=== PATIENT | male | born 1960 | race Caucasian/White ===

== ENCOUNTER 2021-03-10 22:21 | Emergency (ER) | payer SELFPAY ==
[~2021-03-10] VITALS: Ht 170.2 cm; Wt 69.0 kg
[2021-03-11] MEDS ORDERED: DIATR MEGLU/DIATRIZOATE SOLN 30ML ONE (01:13)
[2021-03-11 05:40] VITALS: BP 116/72
[2021-03-15] MEDS ORDERED: TAMS-11 GT (03:56)
[2021-03-15] MEDS ORDERED: VALP250C3 GT (03:56)
[2021-03-15] MEDS ORDERED: ZINC50TA69 GT (03:56)
[2021-03-15] MEDS ORDERED: ASCO-339 GT (03:56)
[2021-03-15] MEDS ORDERED: METO25TA6 GT (03:56)
[2021-03-15] MEDS ORDERED: IRBE75TA9 GT (03:56)
[2021-03-15] MEDS ORDERED: OMEP20CA14 GT (03:56)
[2021-03-15] MEDS ORDERED: FAMO20TA8 GT (03:56)
[2021-03-15] MEDS ORDERED: HJ10 SUBCUT (03:56)
[2021-03-15] MEDS ORDERED: MOBI7 GT (03:56)
[2021-03-15] MEDS ORDERED: ATOR40TA70 GT (03:56)
== END 2021-03-11 05:53 ==
LOC: ER 22:21
DX: K94.23 Gastrostomy malfunction (principal); E11.9 Type 2 diabetes mellitus without complications; G40.909 Epilepsy, unspecified, not intractable, without status epilepticus; K21.9 Gastro-esophageal reflux disease without esophagitis; Z87.891 Personal history of nicotine dependence; Y83.3 Surgical operation with formation of external stoma as the cause of abnormal reaction of the patient, or of later complication, without mention of misadventure at the time of the procedure; Y92.128 Other place in nursing home as the place of occurrence of the external cause
CPT/HCPCS: 74018; 93005; 99283; Q9963

== ENCOUNTER 2021-03-11 11:34 | Emergency (ER) | payer OTHER ==
[~2021-03-11] VITALS: Ht 170.2 cm; Wt 63.0 kg
[2021-03-11 13:29] LABS: CHLORIDE 113 mEq/L (98-107)
[2021-03-11 13:35] LABS: INR 1.1; PARTIAL THROMBOPLASTIN TIME 27.6 sec (23.4-31.0); PROTHROMBIN TIME 11.5 sec (9.6-11.0)
[2021-03-11] MEDS ORDERED: LORAZEPAM 2MG/ML CPJ IV ONE (13:45)
[2021-03-11] MEDS ORDERED: LIDOCAINE HCL 1% 20ML VIAL (Pyxis) INJ ONE (14:00)
[2021-03-11] MEDS ORDERED: IOHEXOL-300 50 ML BOTTLE IV ONE (14:00)
[2021-03-11] MEDS ORDERED: LIDOCAINE HCL 2% JELLY 5ML ONE (14:01)
[2021-03-11] MEDS ORDERED: HALOPERIDOL LACTATE 5MG/ML VIAL IM ONE (17:15)
[2021-03-11] MEDS ORDERED: LORAZEPAM 2MG/ML CPJ IM ONE (18:45)
[2021-03-11 19:04] VITALS: BP 142/66
[2021-03-15] MEDS ORDERED: TAMS-11 GT (03:56)
[2021-03-15] MEDS ORDERED: IRBE75TA9 GT (03:56)
[2021-03-15] MEDS ORDERED: ZINC50TA69 GT (03:56)
[2021-03-15] MEDS ORDERED: FAMO20TA8 GT (03:56)
[2021-03-15] MEDS ORDERED: MOBI7 GT (03:56)
[2021-03-15] MEDS ORDERED: METO25TA6 GT (03:56)
[2021-03-15] MEDS ORDERED: ATOR40TA70 GT (03:56)
[2021-03-15] MEDS ORDERED: HJ10 SUBCUT (03:56)
[2021-03-15] MEDS ORDERED: ASCO-339 GT (03:56)
[2021-03-15] MEDS ORDERED: OMEP20CA14 GT (03:56)
[2021-03-15] MEDS ORDERED: VALP250C3 GT (03:56)
== END 2021-03-11 19:07 ==
LOC: ER 11:34
DX: Z43.1 Encounter for attention to gastrostomy (principal); E11.9 Type 2 diabetes mellitus without complications; I10 Essential (primary) hypertension; R45.1 Restlessness and agitation; K21.9 Gastro-esophageal reflux disease without esophagitis; G40.909 Epilepsy, unspecified, not intractable, without status epilepticus; F03.90 Unspecified dementia, unspecified severity, without behavioral disturbance, psychotic disturbance, mood disturbance, and anxiety; Z85.819 Personal history of malignant neoplasm of unspecified site of lip, oral cavity, and pharynx; Z98.890 Other specified postprocedural states; Z20.822 Contact with and (suspected) exposure to COVID-19
CPT/HCPCS: 36415; 36598; 49450; 80053; 85610; 85730; 87426; 96372; 96374; 99285; C1769; C1892; J1630; J2060; J3490; Q9967; Z7610; L8514

== ENCOUNTER 2021-05-01 01:38 | Emergency (ER) | payer OTHER ==
[~2021-05-01] VITALS: Ht 175.3 cm; Wt 51.0 kg
[~2021-05-01 01:38] MED LIST: ASCO-339 GT; ATOR40TA70 GT; FAMO20TA8 GT; HJ10 SUBCUT; IRBE75TA9 GT; METO25TA6 GT; MOBI7 GT; OMEP20CA14 GT; TAMS-11 GT; VALP250C3 GT; ZINC50TA69 GT
[2021-05-01] MEDS ORDERED: MORPHINE SULFATE 4 MG/ML CPJ (NOT FOR IM USE) IV ONE (03:00)
[2021-05-01 03:17] LABS: BASOPHILS % 0.9 % (0.0-2.0); HEMATOCRIT. 32.8 % (42.0-52.0); LYMPHOCYTES % 12.1 % (20.0-50.0); MEAN CORPUSCULAR HEMOGLOBIN 33.1 pg (28.0-32.0); MEAN CORPUSCULAR VOLUME 98.6 fL (80.0-94.0); MEAN PLATELET VOLUME 8.5 fl (7.4-10.4); MONOCYTES % 7.3 % (2.0-8.0); NEUTROPHILS % 77.7 % (40.0-76.0); PLATELET 249 x1000/uL (130-400); RED BLOOD CELL COUNT 3.33 mill/uL (4.7-6.1); RED CELL DISTRIBUTION WIDTH 15.3 % (11.6-14.6)
[2021-05-01 03:30] LABS: CHLORIDE 106 mEq/L (98-107)
[2021-05-01 10:30] VITALS: BP 112/73
== END 2021-05-01 10:29 | disposition short-term general hospital (02) ==
LOC: ER 01:38
DX: K94.23 Gastrostomy malfunction (principal); D64.9 Anemia, unspecified; E11.9 Type 2 diabetes mellitus without complications; Z20.822 Contact with and (suspected) exposure to COVID-19; Z13.9 Encounter for screening, unspecified; Z79.899 Other long term (current) drug therapy; Z98.890 Other specified postprocedural states; Z86.73 Personal history of transient ischemic attack (TIA), and cerebral infarction without residual deficits
CPT/HCPCS: 36415; 80048; 85025; 87426; 96374; 99285; J2270

== ENCOUNTER 2022-04-30 11:04 | Inpatient (IN) | payer MEDICAID, OTHER ==
[~2022-04-30] VITALS: Ht 162.6 cm; Wt 45.4 kg
[2022-04-30] MEDS ORDERED: ACETAMINOPHEN 650MG SUPP PR STA (11:12)
[2022-04-30] MEDS ORDERED: SODIUM CHLORIDE 0.9% 1000ML BAG (SEPSIS BOLUS) IV ONE (11:15)
[2022-04-30] MEDS ORDERED: CEFTRIAXONE 1 G PREMIX 50 ML IV ONE (11:15)
[2022-04-30 11:49] LABS: BG BASE EXCESS -0.2 mmol/L (-2.0-2.0); BG CARBOXYHEMOGLOBIN 0.3 % (0.5-1.5); BG DEOXYHEMOGLOBIN 1.5 % (0.0-5.0); BG FRACTION INSPIRED OXYGEN 36; BG METHEMOGLOBIN 0.3 % (0.0-1.5); BG OXYGEN SATURATION 98.5 % (92.0-98.5); BG OXYHEMOGLOBIN 97.9 % (94.0-97.0); BG PCO2 37.5 mmHg (35.0-45.0); BG PH 7.424 (7.350-7.450); BG PO2 150.6 mmHg (75.0-100.0); BG SAMPLE SITE RIGHT RADIAL; BG TOTAL HEMOGLOBIN 10.6 g/dL (12.0-18.0); BG VENT MODE NASAL CANNULA
[2022-04-30 12:04] LABS: HEMATOCRIT. 31.9 % (42.0-52.0); HEMOGLOBIN. 11.2 g/dL (14.0-18.0); MEAN CORPUSCULAR HEMOGLOBIN 34.2 pg (28.0-32.0); MEAN CORPUSCULAR VOLUME 97.3 fL (80.0-94.0); MEAN PLATELET VOLUME 8.7 fl (7.4-10.4); PLATELET 171 x1000/uL (130-400); RED BLOOD CELL COUNT 3.28 mill/uL (4.7-6.1); RED CELL DISTRIBUTION WIDTH 13.8 % (11.6-14.6)
[2022-04-30 12:10] LABS: CHLORIDE 107 mEq/L (98-107)
[2022-04-30] MEDS ORDERED: LIDOCAINE HCL 1% 50ML VIAL (10MG/ML) ONE (13:39)
[2022-04-30 15:05] LABS: INR 1.1
[2022-04-30 20:00] VITALS: BP 111/63
[2022-04-30 23:19] LABS: PLATELET ESTIMATE NORMAL
[2022-04-30] MEDS ORDERED: IPRATROPIUM/ALBUTEROL 0.5-3(2.5)MG/3ML NEB HHN PRN (23:45)
[2022-05-01 00:47] VITALS: BP 106/65
[2022-05-01] MEDS: PIPERACILLIN/TAZOBACTAM 3.375 G in DEXTROSE 5% WATER 50 ML IV SCH ×3 (03:45→21:31)
[2022-05-01 05:02] VITALS: BP 91/60
[2022-05-01] MEDS: VALPROATE SODIUM 250MG/5ML UDC PO SCH ×3 (06:36→21:31)
[2022-05-01] MEDS ORDERED: TOPUD PO (07:49)
[2022-05-01] MEDS ORDERED: ASCO125T PO (07:49)
[2022-05-01] MEDS ORDERED: MELA2.5T PO (07:49)
[2022-05-01] MEDS ORDERED: DOCU-150 MT (07:49)
[2022-05-01] MEDS ORDERED: ALBU6.7H9 INH (07:49)
[2022-05-01] MEDS ORDERED: CALC1TAB MT (07:49)
[2022-05-01 08:00] VITALS: BP 102/77
[2022-05-01] MEDS: TAMSULOSIN HCL 0.4MG SR CAPSULE PO SCH (08:38)
[2022-05-01] MEDS: ASCORBIC ACID 500 MG TABLET PO SCH (08:38)
[2022-05-01] MEDS: DOCUSATE SODIUM 100MG CAPSULE PO SCH (08:40)
[2022-05-01 12:00] VITALS: BP 105/68
[2022-05-01] MEDS ORDERED: DIGOXIN 500MCG/2ML AMP IV NR (14:00)
[2022-05-01] MEDS ORDERED: NALOXONE HCL 0.4MG/ML VIAL IV PRN (14:00)
[2022-05-01] MEDS: SODIUM CHLORIDE 0.9% 1,000 ML IV SCH (14:01)
[2022-05-01 16:00] VITALS: BP 90/63
[2022-05-01] MEDS ORDERED: VANCOMYCIN 1GM PMX (XELLIA) 200 ML IV NR (16:00)
[2022-05-01] MEDS: HYDROCODONE/ACETAMINOPHEN 5/325MG TABLET PO PRN (17:16)
[2022-05-01 17:59] LABS: CLARITY URINE CLEAR (CLEAR); COLOR URINE YELLOW (YELLOW); KETONES URINE TRACE (NEGATIVE); LEUKOCYTE ESTERASE URINE TRACE (NEGATIVE); NITRITE URINE NEGATIVE (NEGATIVE); OCCULT BLOOD URINE NEGATIVE (NEGATIVE); PH URINE 5.5 (4.5-8.0); PROTEIN URINE TRACE (NEGATIVE); SPECIFIC GRAVITY URINE 1.023 (1.005-1.030)
[2022-05-01] MEDS: ACETAMINOPHEN 325MG TABLET PO PRN (18:32)
[2022-05-01 20:00] VITALS: BP 95/66
[2022-05-01] MEDS ORDERED: DEXTROSE 50% WATER 50ML SYRINGE IV PRN (21:00)
[2022-05-01] MEDS: FAMOTIDINE 20MG TABLET PO SCH (21:31)
[2022-05-01] MEDS: ATORVASTATIN CALCIUM 40MG TABLET PO SCH (21:31)
[2022-05-01] MEDS: INSULIN LISPRO 100 UNITS/ML SUBCUT SCH (23:20)
[2022-05-01] MEDS: BLOOD SUGAR DIAGNOSTIC STRIP TEST SCH (23:21)
[2022-05-02] VITALS (7 sets, daily range): BP systolic 90–107; BP diastolic 57–73
[2022-05-02] MEDS: ACETAMINOPHEN 325MG TABLET PO PRN ×3 (04:43→23:36)
[2022-05-02] MEDS: PIPERACILLIN/TAZOBACTAM 3.375 G in DEXTROSE 5% WATER 50 ML IV SCH ×3 (05:28→21:04)
[2022-05-02] MEDS: VALPROATE SODIUM 250MG/5ML UDC PO SCH ×3 (05:28→21:04)
[2022-05-02] MEDS: VANCOMYCIN 750MG PREMIX 150 ML IV SCH ×2 (05:28→17:50)
[2022-05-02] MEDS: BLOOD SUGAR DIAGNOSTIC STRIP TEST SCH ×4 (05:38→23:29)
[2022-05-02] MEDS: INSULIN LISPRO 100 UNITS/ML SUBCUT SCH ×4 (05:38→23:29)
[2022-05-02 08:09] LABS: HEMOGLOBIN. 10.9 g/dL (14.0-18.0); MEAN CORPUSCULAR HEMOGLOBIN 33.7 pg (28.0-32.0); MEAN CORPUSCULAR VOLUME 105.7 fL (80.0-94.0); PLATELET 118 x1000/uL (130-400); RED BLOOD CELL COUNT 3.22 mill/uL (4.7-6.1); RED CELL DISTRIBUTION WIDTH 14.3 % (11.6-14.6)
[2022-05-02 08:11] LABS: CHLORIDE 115 mEq/L (98-107)
[2022-05-02] MEDS: DOCUSATE SODIUM 100MG CAPSULE PO SCH (09:17)
[2022-05-02] MEDS: ASCORBIC ACID 500 MG TABLET PO SCH (09:17)
[2022-05-02] MEDS: TAMSULOSIN HCL 0.4MG SR CAPSULE PO SCH (09:17)
[2022-05-02] MEDS: SODIUM CHLORIDE 0.9% 1,000 ML IV SCH (09:18)
[2022-05-02] MEDS: ATORVASTATIN CALCIUM 40MG TABLET PO SCH (21:04)
[2022-05-02] MEDS: FAMOTIDINE 20MG TABLET PO SCH (21:04)
[2022-05-03] MEDS: SODIUM CHLORIDE 0.9% 1,000 ML IV SCH (02:19)
[2022-05-03 04:00] VITALS: BP 110/58
[2022-05-03] MEDS: VANCOMYCIN 750MG PREMIX 150 ML IV SCH ×3 (05:34→22:27)
[2022-05-03] MEDS: VALPROATE SODIUM 250MG/5ML UDC PO SCH ×3 (05:37→21:05)
[2022-05-03] MEDS: BLOOD SUGAR DIAGNOSTIC STRIP TEST SCH ×4 (05:59→23:34)
[2022-05-03] MEDS: INSULIN LISPRO 100 UNITS/ML SUBCUT SCH ×4 (05:59→23:34)
[2022-05-03 06:46] LABS: CHLORIDE 111 mEq/L (98-107)
[2022-05-03] MEDS: PIPERACILLIN/TAZOBACTAM 3.375 G in DEXTROSE 5% WATER 50 ML IV SCH ×3 (06:46→22:57)
[2022-05-03 08:00] VITALS: BP 98/63
[2022-05-03 10:33] LABS: HEMOGLOBIN. 9.8 g/dL (14.0-18.0); MEAN CORPUSCULAR HEMOGLOBIN 33.5 pg (28.0-32.0); MEAN CORPUSCULAR VOLUME 103.2 fL (80.0-94.0); MEAN PLATELET VOLUME 8.6 fl (7.4-10.4); PLATELET 94 x1000/uL (130-400); RED BLOOD CELL COUNT 2.91 mill/uL (4.7-6.1)
[2022-05-03 12:00] VITALS: BP 112/63
[2022-05-03] MEDS: TAMSULOSIN HCL 0.4MG SR CAPSULE PO SCH (13:00)
[2022-05-03] MEDS: ASCORBIC ACID 500 MG TABLET PO SCH (13:00)
[2022-05-03] MEDS: DOCUSATE SODIUM 100MG CAPSULE PO SCH (13:00)
[2022-05-03] MEDS ORDERED: IOHEXOL-300 100 ML BOTTLE ONE (13:38)
[2022-05-03 13:50] LABS: PLATELET ESTIMATE DECREASED
[2022-05-03 14:08] LABS: PLATELET ESTIMATE SLIGHTLY DECREASED
[2022-05-03 16:00] VITALS: BP 121/64
[2022-05-03 20:00] VITALS: BP 120/62
[2022-05-03] MEDS: ATORVASTATIN CALCIUM 40MG TABLET PO SCH (20:43)
[2022-05-03] MEDS: FAMOTIDINE 20MG TABLET PO SCH (20:43)
[2022-05-04] VITALS: BP 117/64
[2022-05-04] MEDS: SODIUM CHLORIDE 0.9% 1,000 ML IV SCH ×2 (02:09→21:12)
[2022-05-04 04:00] VITALS: BP 109/62
[2022-05-04] MEDS: VANCOMYCIN 750MG PREMIX 150 ML IV SCH ×3 (05:22→21:12)
[2022-05-04] MEDS: VALPROATE SODIUM 250MG/5ML UDC PO SCH ×3 (05:37→21:12)
[2022-05-04] MEDS: BLOOD SUGAR DIAGNOSTIC STRIP TEST SCH ×3 (05:45→18:00)
[2022-05-04] MEDS: INSULIN LISPRO 100 UNITS/ML SUBCUT SCH ×3 (05:45→18:00)
[2022-05-04] MEDS: PIPERACILLIN/TAZOBACTAM 3.375 G in DEXTROSE 5% WATER 50 ML IV SCH ×2 (06:41→13:00)
[2022-05-04 08:00] VITALS: BP 104/58
[2022-05-04] MEDS: ASCORBIC ACID 500 MG TABLET PO SCH (08:38)
[2022-05-04] MEDS: DOCUSATE SODIUM 100MG CAPSULE PO SCH (08:39)
[2022-05-04] MEDS: TAMSULOSIN HCL 0.4MG SR CAPSULE PO SCH (08:41)
[2022-05-04 10:35] LABS: HEMATOCRIT. 26.5 % (42.0-52.0); HEMOGLOBIN. 8.9 g/dL (14.0-18.0); MEAN CORPUSCULAR HEMOGLOBIN 33.3 pg (28.0-32.0); MEAN CORPUSCULAR VOLUME 98.9 fL (80.0-94.0); MEAN PLATELET VOLUME 8.7 fl (7.4-10.4); PLATELET 108 x1000/uL (130-400); RED BLOOD CELL COUNT 2.68 mill/uL (4.7-6.1); RED CELL DISTRIBUTION WIDTH 13.9 % (11.6-14.6)
[2022-05-04 10:56] LABS: CHLORIDE 116 mEq/L (98-107)
[2022-05-04 12:00] VITALS: BP 132/62
[2022-05-04] MEDS: ACETAMINOPHEN 325MG TABLET PO PRN (13:18)
[2022-05-04 16:00] VITALS: BP 116/60
[2022-05-04] MEDS: MEROPENEM 500 MG in SODIUM CHLORIDE 0.9% 50 ML IV SCH ×2 (19:15→23:34)
[2022-05-04 20:00] VITALS: BP 132/74
[2022-05-04] MEDS: FAMOTIDINE 20MG TABLET PO SCH (21:12)
[2022-05-04] MEDS: ATORVASTATIN CALCIUM 40MG TABLET PO SCH (21:12)
[2022-05-05] VITALS: BP 126/73
[2022-05-05] MEDS: BLOOD SUGAR DIAGNOSTIC STRIP TEST SCH ×5 (00:48→23:43)
[2022-05-05 02:19] LABS: PLATELET ESTIMATE DECREASED
[2022-05-05 04:00] VITALS: BP 134/69
[2022-05-05] MEDS: MEROPENEM 500 MG in SODIUM CHLORIDE 0.9% 50 ML IV SCH ×3 (05:07→21:13)
[2022-05-05] MEDS: VALPROATE SODIUM 250MG/5ML UDC PO SCH ×3 (05:08→21:13)
[2022-05-05] MEDS: ACETAMINOPHEN 325MG TABLET PO PRN ×2 (05:08→21:16)
[2022-05-05] MEDS: VANCOMYCIN 750MG PREMIX 150 ML IV SCH ×3 (05:55→21:14)
[2022-05-05] MEDS: INSULIN LISPRO 100 UNITS/ML SUBCUT SCH ×5 (05:55→23:43)
[2022-05-05 07:10] LABS: VANCOMYCIN TROUGH 22.1 ug/mL (5.0-10.0)
[2022-05-05 07:28] LABS: CHLORIDE 117 mEq/L (98-107)
[2022-05-05] MEDS: ASCORBIC ACID 500 MG TABLET PO SCH (10:39)
[2022-05-05] MEDS: DOCUSATE SODIUM 100MG CAPSULE PO SCH (10:39)
[2022-05-05] MEDS: TAMSULOSIN HCL 0.4MG SR CAPSULE PO SCH (10:39)
[2022-05-05] MEDS: HYDROCODONE/ACETAMINOPHEN 5/325MG TABLET PO PRN (10:44)
[2022-05-05 12:00] VITALS: BP 115/65
[2022-05-05] MEDS: SODIUM CHLORIDE 0.9% 1,000 ML IV SCH (14:37)
[2022-05-05 16:00] VITALS: BP 124/67
[2022-05-05 20:00] VITALS: BP 134/69
[2022-05-05] MEDS: ATORVASTATIN CALCIUM 40MG TABLET PO SCH (21:13)
[2022-05-05] MEDS: FAMOTIDINE 20MG TABLET PO SCH (21:13)
[2022-05-06] VITALS: BP 123/64
[2022-05-06 03:50] LABS: HEMATOCRIT. 26.5 % (42.0-52.0); MEAN CORPUSCULAR HEMOGLOBIN 33.3 pg (28.0-32.0); MEAN CORPUSCULAR VOLUME 98.5 fL (80.0-94.0); MEAN PLATELET VOLUME 8.7 fl (7.4-10.4); PLATELET 145 x1000/uL (130-400); RED BLOOD CELL COUNT 2.69 mill/uL (4.7-6.1); RED CELL DISTRIBUTION WIDTH 13.9 % (11.6-14.6)
[2022-05-06 04:00] VITALS: BP 112/67
[2022-05-06 04:01] LABS: CHLORIDE 116 mEq/L (98-107)
[2022-05-06 04:06] LABS: VANCOMYCIN TROUGH 24.1 ug/mL (5.0-10.0)
[2022-05-06 04:26] LABS: PLATELET ESTIMATE NORMAL
[2022-05-06] MEDS: VALPROATE SODIUM 250MG/5ML UDC PO SCH ×3 (05:00→21:45)
[2022-05-06] MEDS: MEROPENEM 500 MG in SODIUM CHLORIDE 0.9% 50 ML IV SCH ×3 (05:00→21:44)
[2022-05-06] MEDS: VANCOMYCIN 750MG PREMIX 150 ML IV SCH (05:01)
[2022-05-06] MEDS: ACETAMINOPHEN 325MG TABLET PO PRN ×2 (05:02→21:46)
[2022-05-06] MEDS: BLOOD SUGAR DIAGNOSTIC STRIP TEST SCH ×3 (05:04→17:44)
[2022-05-06] MEDS: INSULIN LISPRO 100 UNITS/ML SUBCUT SCH ×3 (05:07→17:44)
[2022-05-06] MEDS: DOCUSATE SODIUM 100MG CAPSULE PO SCH (10:00)
[2022-05-06] MEDS: ASCORBIC ACID 500 MG TABLET PO SCH (10:30)
[2022-05-06] MEDS: TAMSULOSIN HCL 0.4MG SR CAPSULE PO SCH (10:30)
[2022-05-06 12:00] VITALS: BP 102/56
[2022-05-06] MEDS: SODIUM CHLORIDE 0.9% 1,000 ML IV SCH ×2 (13:45→23:17)
[2022-05-06 16:00] VITALS: BP 110/64
[2022-05-06] MEDS: VANCOMYCIN 1GM PMX (XELLIA) 200 ML IV SCH (18:22)
[2022-05-06 20:00] VITALS: BP 93/64
[2022-05-06] MEDS: FAMOTIDINE 20MG TABLET PO SCH (21:45)
[2022-05-06] MEDS: ATORVASTATIN CALCIUM 40MG TABLET PO SCH (21:45)
[2022-05-06] MEDS ORDERED: IOHEXOL-300 100 ML BOTTLE ONE (22:50)
[2022-05-07] VITALS: BP 110/62
[2022-05-07] MEDS: BLOOD SUGAR DIAGNOSTIC STRIP TEST SCH ×5 (00:44→23:45)
[2022-05-07 04:00] VITALS: BP 109/66
[2022-05-07] MEDS: MEROPENEM 500 MG in SODIUM CHLORIDE 0.9% 50 ML IV SCH ×3 (05:07→21:16)
[2022-05-07] MEDS: ACETAMINOPHEN 325MG TABLET PO PRN ×3 (05:08→22:36)
[2022-05-07] MEDS: VANCOMYCIN 1GM PMX (XELLIA) 200 ML IV SCH ×2 (05:08→17:36)
[2022-05-07] MEDS: VALPROATE SODIUM 250MG/5ML UDC PO SCH ×3 (05:08→21:16)
[2022-05-07] MEDS: INSULIN LISPRO 100 UNITS/ML SUBCUT SCH ×5 (05:11→23:44)
[2022-05-07 06:39] LABS: HEMATOCRIT. 23.9 % (42.0-52.0); MEAN CORPUSCULAR HEMOGLOBIN 33.4 pg (28.0-32.0); MEAN CORPUSCULAR VOLUME 100.1 fL (80.0-94.0); PLATELET 165 x1000/uL (130-400); RED BLOOD CELL COUNT 2.38 mill/uL (4.7-6.1); RED CELL DISTRIBUTION WIDTH 13.8 % (11.6-14.6)
[2022-05-07 06:53] LABS: CHLORIDE 118 mEq/L (98-107)
[2022-05-07 07:40] VITALS: BP 111/63
[2022-05-07] MEDS: DOCUSATE SODIUM 100MG CAPSULE PO SCH (08:54)
[2022-05-07] MEDS: ASCORBIC ACID 500 MG TABLET PO SCH (08:54)
[2022-05-07] MEDS: TAMSULOSIN HCL 0.4MG SR CAPSULE PO SCH (08:54)
[2022-05-07 11:35] VITALS: BP 117/65
[2022-05-07 11:51] LABS: PLATELET ESTIMATE NORMAL
[2022-05-07] MEDS: SODIUM CHLORIDE 0.9% 1,000 ML IV SCH (15:19)
[2022-05-07 16:00] VITALS: BP 121/64
[2022-05-07 20:00] VITALS: BP 120/64
[2022-05-07] MEDS: FAMOTIDINE 20MG TABLET PO SCH (21:16)
[2022-05-07] MEDS: ATORVASTATIN CALCIUM 40MG TABLET PO SCH (21:16)
[2022-05-08] VITALS: BP 110/57
[2022-05-08] MEDS: SODIUM CHLORIDE 0.9% 1,000 ML IV SCH ×2 (00:21→09:37)
[2022-05-08 04:00] VITALS: BP 116/58
[2022-05-08 04:56] LABS: CHLORIDE 124 mEq/L (98-107)
[2022-05-08 05:06] LABS: VANCOMYCIN TROUGH 17.9 ug/mL (5.0-10.0)
[2022-05-08] MEDS: BLOOD SUGAR DIAGNOSTIC STRIP TEST SCH ×4 (05:07→23:45)
[2022-05-08] MEDS: INSULIN LISPRO 100 UNITS/ML SUBCUT SCH ×4 (05:07→23:46)
[2022-05-08] MEDS: VALPROATE SODIUM 250MG/5ML UDC PO SCH ×3 (05:08→21:10)
[2022-05-08] MEDS: MEROPENEM 500 MG in SODIUM CHLORIDE 0.9% 50 ML IV SCH ×3 (05:08→21:10)
[2022-05-08] MEDS: VANCOMYCIN 1GM PMX (XELLIA) 200 ML IV SCH ×2 (05:10→18:20)
[2022-05-08 06:17] LABS: HEMATOCRIT. 22.9 % (42.0-52.0); HEMOGLOBIN. 7.6 g/dL (14.0-18.0); MEAN CORPUSCULAR HEMOGLOBIN 33.6 pg (28.0-32.0); MEAN CORPUSCULAR VOLUME 101.3 fL (80.0-94.0); MEAN PLATELET VOLUME 9.1 fl (7.4-10.4); PLATELET 171 x1000/uL (130-400); RED BLOOD CELL COUNT 2.26 mill/uL (4.7-6.1); RED CELL DISTRIBUTION WIDTH 14.3 % (11.6-14.6)
[2022-05-08 08:00] VITALS: BP 94/67
[2022-05-08] MEDS: ASCORBIC ACID 500 MG TABLET PO SCH (09:36)
[2022-05-08] MEDS: DOCUSATE SODIUM 100MG CAPSULE PO SCH (09:37)
[2022-05-08] MEDS: TAMSULOSIN HCL 0.4MG SR CAPSULE PO SCH (09:37)
[2022-05-08 11:41] VITALS: BP 117/66
[2022-05-08 15:34] LABS: NUCLEATED RED BLOOD CELLS 1 /100 WBC; PLATELET ESTIMATE NORMAL
[2022-05-08 15:59] VITALS: BP 120/65
[2022-05-08 20:30] VITALS: BP 134/79
[2022-05-08] MEDS: ATORVASTATIN CALCIUM 40MG TABLET PO SCH (21:10)
[2022-05-08] MEDS: FAMOTIDINE 20MG TABLET PO SCH (21:10)
[2022-05-09] VITALS (7 sets, daily range): BP systolic 97–110; BP diastolic 56–71
[2022-05-09] MEDS: INSULIN LISPRO 100 UNITS/ML SUBCUT SCH ×3 (06:00→17:08)
[2022-05-09] MEDS: VANCOMYCIN 1GM PMX (XELLIA) 200 ML IV SCH ×2 (06:05→17:38)
[2022-05-09] MEDS: MEROPENEM 500 MG in SODIUM CHLORIDE 0.9% 50 ML IV SCH ×3 (06:05→21:20)
[2022-05-09] MEDS: VALPROATE SODIUM 250MG/5ML UDC PO SCH ×3 (06:05→21:20)
[2022-05-09] MEDS: BLOOD SUGAR DIAGNOSTIC STRIP TEST SCH ×3 (06:16→17:08)
[2022-05-09] MEDS: DOCUSATE SODIUM 100MG CAPSULE PO SCH (08:32)
[2022-05-09] MEDS: TAMSULOSIN HCL 0.4MG SR CAPSULE PO SCH (08:33)
[2022-05-09] MEDS: ASCORBIC ACID 500 MG TABLET PO SCH (08:33)
[2022-05-09] MEDS: ACETAMINOPHEN 325MG TABLET PO PRN (08:36)
[2022-05-09 11:03] LABS: CREATINE KINASE 1014 IU/L (39-308); TOTAL IRON BINDING CAPACITY 110 ug/dL (250-450)
[2022-05-09 13:11] LABS: CHLORIDE 122 mEq/L (98-107)
[2022-05-09 14:04] LABS: HEMATOCRIT. 23.2 % (42.0-52.0); HEMOGLOBIN. 7.6 g/dL (14.0-18.0); MEAN CORPUSCULAR VOLUME 101.3 fL (80.0-94.0); MEAN PLATELET VOLUME 8.9 fl (7.4-10.4); PLATELET 186 x1000/uL (130-400); RED BLOOD CELL COUNT 2.29 mill/uL (4.7-6.1); RED CELL DISTRIBUTION WIDTH 14.3 % (11.6-14.6)
[2022-05-09] MEDS: METHYLPREDNISOLONE SOD SUCC 40 MG/ML VIAL IV SCH ×2 (14:56→21:20)
[2022-05-09] MEDS: FAMOTIDINE 20MG TABLET PO SCH (20:47)
[2022-05-09] MEDS: ATORVASTATIN CALCIUM 40MG TABLET PO SCH (20:47)
[2022-05-09 22:13] LABS: PLATELET ESTIMATE NORMAL
[2022-05-10] MEDS: BLOOD SUGAR DIAGNOSTIC STRIP TEST SCH ×4 (00:07→17:37)
[2022-05-10] MEDS: INSULIN LISPRO 100 UNITS/ML SUBCUT SCH ×4 (00:34→17:38)
[2022-05-10 00:42] VITALS: BP 101/66
[2022-05-10 04:00] VITALS: BP 99/64
[2022-05-10] MEDS: MEROPENEM 500 MG in SODIUM CHLORIDE 0.9% 50 ML IV SCH ×3 (05:36→21:43)
[2022-05-10] MEDS: METHYLPREDNISOLONE SOD SUCC 40 MG/ML VIAL IV SCH ×3 (05:36→21:41)
[2022-05-10] MEDS: VANCOMYCIN 1GM PMX (XELLIA) 200 ML IV SCH ×2 (05:36→17:39)
[2022-05-10] MEDS: VALPROATE SODIUM 250MG/5ML UDC PO SCH ×3 (05:36→21:41)
[2022-05-10 08:00] VITALS: BP 101/72
[2022-05-10 08:04] LABS: HEMATOCRIT. 23.8 % (42.0-52.0); HEMOGLOBIN. 7.6 g/dL (14.0-18.0); MEAN CORPUSCULAR HEMOGLOBIN 32.8 pg (28.0-32.0); MEAN CORPUSCULAR VOLUME 102.6 fL (80.0-94.0); PLATELET 156 x1000/uL (130-400); RED BLOOD CELL COUNT 2.32 mill/uL (4.7-6.1); RED CELL DISTRIBUTION WIDTH 14.7 % (11.6-14.6)
[2022-05-10 08:08] LABS: CHLORIDE 120 mEq/L (98-107)
[2022-05-10] MEDS: DOCUSATE SODIUM 100MG CAPSULE PO SCH (08:16)
[2022-05-10] MEDS: ASCORBIC ACID 500 MG TABLET PO SCH (08:17)
[2022-05-10] MEDS: TAMSULOSIN HCL 0.4MG SR CAPSULE PO SCH (08:17)
[2022-05-10 12:00] VITALS: BP 100/70
[2022-05-10 16:00] VITALS: BP 115/62
[2022-05-10 21:10] VITALS: BP 109/72
[2022-05-10] MEDS: ATORVASTATIN CALCIUM 40MG TABLET PO SCH (21:40)
[2022-05-10] MEDS: FAMOTIDINE 20MG TABLET PO SCH (21:40)
[2022-05-11] VITALS: BP 106/65
[2022-05-11 04:00] VITALS: BP 117/84
[2022-05-11] MEDS: VANCOMYCIN 1GM PMX (XELLIA) 200 ML IV SCH ×2 (05:47→17:24)
[2022-05-11] MEDS: BLOOD SUGAR DIAGNOSTIC STRIP TEST SCH ×4 (06:00→18:00)
[2022-05-11] MEDS: INSULIN LISPRO 100 UNITS/ML SUBCUT SCH ×4 (06:00→17:24)
[2022-05-11] MEDS: VALPROATE SODIUM 250MG/5ML UDC PO SCH ×3 (06:44→21:09)
[2022-05-11] MEDS: METHYLPREDNISOLONE SOD SUCC 40 MG/ML VIAL IV SCH ×3 (06:44→21:47)
[2022-05-11] MEDS: MEROPENEM 500 MG in SODIUM CHLORIDE 0.9% 50 ML IV SCH ×3 (07:29→21:09)
[2022-05-11 08:07] LABS: ANTI-JO 1 ABS <0.2 AI (0.0-0.9); RNP ANTIBODY < 0.2 AI (0.0-0.9)
[2022-05-11] MEDS: ASCORBIC ACID 500 MG TABLET PO SCH (08:08)
[2022-05-11] MEDS: DOCUSATE SODIUM SUGAR FREE 100MG/10ML UDC NG SCH (08:08)
[2022-05-11] MEDS: TAMSULOSIN HCL 0.4MG SR CAPSULE PO SCH (08:09)
[2022-05-11 09:10] LABS: ANTI-DNA DOUBLE STRANDED QUANT 2 IU/mL (0-9)
[2022-05-11 12:00] VITALS: BP 106/70
[2022-05-11 12:34] LABS: HEMATOCRIT 23.8 % (42.0-52.0); HEMOGLOBIN 7.4 g/dL (14.0-18.0)
[2022-05-11] MEDS: ACETAMINOPHEN 325MG TABLET PO PRN ×2 (13:19→17:01)
[2022-05-11 16:00] VITALS: BP 109/71
[2022-05-11 20:00] VITALS: BP 101/66
[2022-05-11] MEDS: FAMOTIDINE 20MG TABLET PO SCH (20:41)
[2022-05-11] MEDS: ATORVASTATIN CALCIUM 40MG TABLET PO SCH (20:41)
[2022-05-12] VITALS (10 sets, daily range): BP systolic 104–121; BP diastolic 67–78
[2022-05-12] MEDS: BLOOD SUGAR DIAGNOSTIC STRIP TEST SCH ×5 (00:36→23:21)
[2022-05-12] MEDS: INSULIN LISPRO 100 UNITS/ML SUBCUT SCH ×5 (00:46→23:22)
[2022-05-12] MEDS: MEROPENEM 500 MG in SODIUM CHLORIDE 0.9% 50 ML IV SCH ×3 (05:23→21:28)
[2022-05-12] MEDS: VALPROATE SODIUM 250MG/5ML UDC PO SCH ×3 (05:23→21:28)
[2022-05-12] MEDS: METHYLPREDNISOLONE SOD SUCC 40 MG/ML VIAL IV SCH ×3 (05:40→21:29)
[2022-05-12 05:54] LABS: CHLORIDE 119 mEq/L (98-107)
[2022-05-12] MEDS: VANCOMYCIN 1GM PMX (XELLIA) 200 ML IV SCH ×2 (06:13→17:50)
[2022-05-12 06:23] LABS: HEMATOCRIT. 21.5 % (42.0-52.0); MEAN CORPUSCULAR HEMOGLOBIN 31.9 pg (28.0-32.0); MEAN CORPUSCULAR VOLUME 100.8 fL (80.0-94.0); MEAN PLATELET VOLUME 9.9 fl (7.4-10.4); PLATELET 178 x1000/uL (130-400); RED BLOOD CELL COUNT 2.13 mill/uL (4.7-6.1); RED CELL DISTRIBUTION WIDTH 14.2 % (11.6-14.6)
[2022-05-12 06:39] LABS: HEMOGLOBIN. 6.8 g/dL (14.0-18.0)
[2022-05-12] MEDS: ASCORBIC ACID 500 MG TABLET PO SCH (08:17)
[2022-05-12] MEDS: TAMSULOSIN HCL 0.4MG SR CAPSULE PO SCH (08:17)
[2022-05-12] MEDS: DOCUSATE SODIUM SUGAR FREE 100MG/10ML UDC NG SCH (08:17)
[2022-05-12 09:06] LABS: ANA IFA Negative (.)
[2022-05-12 13:10] LABS: ATYPICAL P-ANCA <1:20 titer (Neg:<1:20); CYTOPLASMIC C-ANCA <1:20 titer (Neg:<1:20); PERINUCLEAR P-ANCA <1:20 titer (Neg:<1:20)
[2022-05-12 14:19] LABS: PLATELET ESTIMATE NORMAL
[2022-05-12 19:10] LABS: ANTI-MYELOPEROXIDASE AB < 0.2 units (0.0-0.9); ANTI-PROTEINASE 3 ABS < 0.2 units (0.0-0.9)
[2022-05-12 20:46] LABS: HEMOGLOBIN 9.7 g/dL (14.0-18.0)
[2022-05-12] MEDS: ATORVASTATIN CALCIUM 40MG TABLET PO SCH (21:28)
[2022-05-12] MEDS: FAMOTIDINE 20MG TABLET PO SCH (21:28)
[2022-05-13 04:00] VITALS: BP 109/74
[2022-05-13] MEDS: MEROPENEM 500 MG in SODIUM CHLORIDE 0.9% 50 ML IV SCH ×3 (05:14→21:59)
[2022-05-13] MEDS: BLOOD SUGAR DIAGNOSTIC STRIP TEST SCH ×3 (05:43→17:35)
[2022-05-13] MEDS: VANCOMYCIN 1GM PMX (XELLIA) 200 ML IV SCH ×2 (05:43→17:31)
[2022-05-13] MEDS: VALPROATE SODIUM 250MG/5ML UDC PO SCH ×3 (05:43→22:00)
[2022-05-13] MEDS: METHYLPREDNISOLONE SOD SUCC 40 MG/ML VIAL IV SCH ×3 (05:43→22:00)
[2022-05-13] MEDS: INSULIN LISPRO 100 UNITS/ML SUBCUT SCH ×3 (05:47→17:35)
[2022-05-13 06:53] LABS: HEMATOCRIT. 25.5 % (42.0-52.0); HEMOGLOBIN. 8.5 g/dL (14.0-18.0); MEAN CORPUSCULAR HEMOGLOBIN 32.8 pg (28.0-32.0); MEAN CORPUSCULAR VOLUME 98.3 fL (80.0-94.0); MEAN PLATELET VOLUME 9.6 fl (7.4-10.4); PLATELET 167 x1000/uL (130-400); RED BLOOD CELL COUNT 2.59 mill/uL (4.7-6.1); RED CELL DISTRIBUTION WIDTH 14.6 % (11.6-14.6)
[2022-05-13 07:06] LABS: CHLORIDE 117 mEq/L (98-107)
[2022-05-13 08:00] VITALS: BP 117/74
[2022-05-13] MEDS: DOCUSATE SODIUM SUGAR FREE 100MG/10ML UDC NG SCH (08:22)
[2022-05-13] MEDS: TAMSULOSIN HCL 0.4MG SR CAPSULE PO SCH (08:22)
[2022-05-13] MEDS: ASCORBIC ACID 500 MG TABLET PO SCH (08:22)
[2022-05-13 09:09] LABS: NUCLEATED RED BLOOD CELLS 1 /100 WBC; PLATELET ESTIMATE NORMAL
[2022-05-13 12:00] VITALS: BP 113/76
[2022-05-13 14:30] LABS: FOLIC ACID (FOLATE) SERUM 19.9 ng/mL (>5.38)
[2022-05-13 15:08] LABS: ACTIN (SMOOTH MUSCLE) ANTIBODY 14 Units (0-19)
[2022-05-13 16:00] VITALS: BP 116/74
[2022-05-13 17:06] LABS: ANTI-CARDIOLIPIN AB IGG < 9 GPL U/mL (0-14); ANTI-CARDIOLIPIN AB IGM 13 MPL U/mL (0-12)
[2022-05-13] MEDS: PANTOPRAZOLE SODIUM 40 MG/VIAL IV SCH (17:34)
[2022-05-13 20:00] VITALS: BP 132/85
[2022-05-13] MEDS: ATORVASTATIN CALCIUM 40MG TABLET PO SCH (21:59)
[2022-05-13] MEDS: FAMOTIDINE 20MG TABLET PO SCH (21:59)
[2022-05-14] VITALS: BP 121/83
[2022-05-14] MEDS: BLOOD SUGAR DIAGNOSTIC STRIP TEST SCH ×4 (00:26→17:39)
[2022-05-14] MEDS: INSULIN LISPRO 100 UNITS/ML SUBCUT SCH ×4 (00:28→17:47)
[2022-05-14 04:00] VITALS: BP 125/76
[2022-05-14] MEDS: ACETAMINOPHEN 325MG TABLET PO PRN ×2 (04:58→17:25)
[2022-05-14] MEDS: MEROPENEM 500 MG in SODIUM CHLORIDE 0.9% 50 ML IV SCH ×3 (05:48→21:56)
[2022-05-14] MEDS: VANCOMYCIN 1GM PMX (XELLIA) 200 ML IV SCH (06:01)
[2022-05-14] MEDS: METHYLPREDNISOLONE SOD SUCC 40 MG/ML VIAL IV SCH ×3 (06:22→21:56)
[2022-05-14] MEDS: VALPROATE SODIUM 250MG/5ML UDC PO SCH ×3 (06:22→21:56)
[2022-05-14 07:05] LABS: HEMATOCRIT. 28.3 % (42.0-52.0); HEMOGLOBIN. 9.2 g/dL (14.0-18.0); MEAN CORPUSCULAR HEMOGLOBIN 32.5 pg (28.0-32.0); MEAN CORPUSCULAR VOLUME 100.6 fL (80.0-94.0); MEAN PLATELET VOLUME 9.4 fl (7.4-10.4); PLATELET 180 x1000/uL (130-400); RED BLOOD CELL COUNT 2.81 mill/uL (4.7-6.1); RED CELL DISTRIBUTION WIDTH 14.6 % (11.6-14.6)
[2022-05-14 07:54] LABS: CHLORIDE 119 mEq/L (98-107)
[2022-05-14 08:00] LABS: VANCOMYCIN TROUGH 22.6 ug/mL (5.0-10.0)
[2022-05-14] MEDS: ASCORBIC ACID 500 MG TABLET PO SCH (09:04)
[2022-05-14] MEDS: DOCUSATE SODIUM SUGAR FREE 100MG/10ML UDC NG SCH (09:04)
[2022-05-14] MEDS: PANTOPRAZOLE SODIUM 40 MG/VIAL IV SCH ×2 (09:04→17:31)
[2022-05-14] MEDS: TAMSULOSIN HCL 0.4MG SR CAPSULE PO SCH (09:08)
[2022-05-14 10:15] LABS: NUCLEATED RED BLOOD CELLS 1 /100 WBC; PLATELET ESTIMATE NORMAL
[2022-05-14 12:00] VITALS: BP 149/85
[2022-05-14 16:00] VITALS: BP 135/77
[2022-05-14] MEDS: VANCOMYCIN 750MG PMX (XELLIA) 150 ML IV SCH (17:26)
[2022-05-14 20:00] VITALS: BP 118/79
[2022-05-14] MEDS: ATORVASTATIN CALCIUM 40MG TABLET PO SCH (21:55)
[2022-05-14] MEDS: FAMOTIDINE 20MG TABLET PO SCH (21:56)
[2022-05-15] VITALS: BP 112/75
[2022-05-15 04:00] VITALS: BP 114/75
[2022-05-15] MEDS: INSULIN LISPRO 100 UNITS/ML SUBCUT SCH ×4 (06:00→17:43)
[2022-05-15] MEDS: VANCOMYCIN 750MG PMX (XELLIA) 150 ML IV SCH ×2 (06:32→17:40)
[2022-05-15] MEDS: MEROPENEM 500 MG in SODIUM CHLORIDE 0.9% 50 ML IV SCH ×3 (06:32→22:09)
[2022-05-15] MEDS: BLOOD SUGAR DIAGNOSTIC STRIP TEST SCH ×4 (06:33→17:40)
[2022-05-15] MEDS: VALPROATE SODIUM 250MG/5ML UDC PO SCH ×3 (06:33→21:53)
[2022-05-15] MEDS: METHYLPREDNISOLONE SOD SUCC 40 MG/ML VIAL IV SCH ×3 (06:33→21:53)
[2022-05-15 08:00] VITALS: BP 116/73
[2022-05-15 08:20] LABS: BASOPHILS % 0.1 % (0.0-2.0); EOSINOPHILS % 0.4 % (0.0-5.0); HEMATOCRIT. 30.5 % (42.0-52.0); HEMOGLOBIN. 10.1 g/dL (14.0-18.0); LYMPHOCYTES % 8.4 % (20.0-50.0); MEAN CORPUSCULAR HEMOGLOBIN 32.8 pg (28.0-32.0); MEAN CORPUSCULAR VOLUME 98.7 fL (80.0-94.0); MEAN PLATELET VOLUME 9.1 fl (7.4-10.4); MONOCYTES % 5.6 % (2.0-8.0); NEUTROPHILS % 85.5 % (40.0-76.0); PLATELET 224 x1000/uL (130-400); RED BLOOD CELL COUNT 3.09 mill/uL (4.7-6.1); RED CELL DISTRIBUTION WIDTH 14.4 % (11.6-14.6)
[2022-05-15 08:22] LABS: CHLORIDE 115 mEq/L (98-107)
[2022-05-15] MEDS: DOCUSATE SODIUM SUGAR FREE 100MG/10ML UDC NG SCH (09:05)
[2022-05-15] MEDS: TAMSULOSIN HCL 0.4MG SR CAPSULE PO SCH (09:06)
[2022-05-15] MEDS: PANTOPRAZOLE SODIUM 40 MG/VIAL IV SCH ×2 (09:06→16:59)
[2022-05-15] MEDS: ASCORBIC ACID 500 MG TABLET PO SCH (09:06)
[2022-05-15 12:00] VITALS: BP 112/82
[2022-05-15 16:00] VITALS: BP 110/68
[2022-05-15 20:00] VITALS: BP 108/74
[2022-05-15] MEDS: FAMOTIDINE 20MG TABLET PO SCH (21:53)
[2022-05-15] MEDS: ATORVASTATIN CALCIUM 40MG TABLET PO SCH (21:53)
[2022-05-16] VITALS: BP 103/70
[2022-05-16] MEDS: BLOOD SUGAR DIAGNOSTIC STRIP TEST SCH ×5 (00:07→23:55)
[2022-05-16] MEDS: INSULIN LISPRO 100 UNITS/ML SUBCUT SCH ×5 (00:07→23:55)
[2022-05-16 04:00] VITALS: BP 116/74
[2022-05-16] MEDS: MEROPENEM 500 MG in SODIUM CHLORIDE 0.9% 50 ML IV SCH ×3 (05:03→20:23)
[2022-05-16] MEDS: VALPROATE SODIUM 250MG/5ML UDC PO SCH ×3 (05:38→20:23)
[2022-05-16] MEDS: VANCOMYCIN 750MG PMX (XELLIA) 150 ML IV SCH ×2 (05:38→17:14)
[2022-05-16] MEDS: METHYLPREDNISOLONE SOD SUCC 40 MG/ML VIAL IV SCH ×3 (05:39→20:24)
[2022-05-16 08:00] VITALS: BP 115/71
[2022-05-16 08:07] LABS: HEMATOCRIT. 27.1 % (42.0-52.0); HEMOGLOBIN. 8.9 g/dL (14.0-18.0); MEAN CORPUSCULAR VOLUME 100.3 fL (80.0-94.0); MEAN PLATELET VOLUME 9.1 fl (7.4-10.4); PLATELET 192 x1000/uL (130-400); RED CELL DISTRIBUTION WIDTH 15.1 % (11.6-14.6)
[2022-05-16 08:18] LABS: CHLORIDE 113 mEq/L (98-107)
[2022-05-16] MEDS: DOCUSATE SODIUM SUGAR FREE 100MG/10ML UDC NG SCH (09:11)
[2022-05-16] MEDS: TAMSULOSIN HCL 0.4MG SR CAPSULE PO SCH (09:11)
[2022-05-16] MEDS: PANTOPRAZOLE SODIUM 40 MG/VIAL IV SCH ×2 (09:11→17:15)
[2022-05-16] MEDS: ASCORBIC ACID 500 MG TABLET PO SCH (09:11)
[2022-05-16 09:47] LABS: PLATELET ESTIMATE NORMAL
[2022-05-16 12:00] VITALS: BP 123/81
[2022-05-16 16:00] VITALS: BP 117/81
[2022-05-16 20:00] VITALS: BP_SYST 119; BP_SYST 175; BP_DIAS 113; BP_DIAS 83
[2022-05-16] MEDS: ACETAMINOPHEN 325MG TABLET PO PRN (20:23)
[2022-05-16] MEDS: ATORVASTATIN CALCIUM 40MG TABLET PO SCH (20:23)
[2022-05-16] MEDS: FAMOTIDINE 20MG TABLET PO SCH (20:23)
[2022-05-17] VITALS: BP 121/75
[2022-05-17 04:00] VITALS: BP 110/70
[2022-05-17] MEDS: BLOOD SUGAR DIAGNOSTIC STRIP TEST SCH ×3 (05:45→17:27)
[2022-05-17] MEDS: INSULIN LISPRO 100 UNITS/ML SUBCUT SCH ×3 (05:45→17:28)
[2022-05-17] MEDS: VALPROATE SODIUM 250MG/5ML UDC PO SCH ×3 (05:46→22:05)
[2022-05-17] MEDS: METHYLPREDNISOLONE SOD SUCC 40 MG/ML VIAL IV SCH ×3 (05:46→22:08)
[2022-05-17 07:10] LABS: CHLORIDE 110 mEq/L (98-107)
[2022-05-17 07:24] LABS: HEMOGLOBIN. 9.3 g/dL (14.0-18.0); MEAN CORPUSCULAR HEMOGLOBIN 33.3 pg (28.0-32.0); MEAN CORPUSCULAR VOLUME 100.7 fL (80.0-94.0); MEAN PLATELET VOLUME 9.4 fl (7.4-10.4); PLATELET 190 x1000/uL (130-400); RED BLOOD CELL COUNT 2.78 mill/uL (4.7-6.1); RED CELL DISTRIBUTION WIDTH 14.6 % (11.6-14.6)
[2022-05-17 08:00] VITALS: BP 118/77
[2022-05-17] MEDS: PANTOPRAZOLE SODIUM 40 MG/VIAL IV SCH ×2 (08:45→17:27)
[2022-05-17] MEDS: DOCUSATE SODIUM SUGAR FREE 100MG/10ML UDC NG SCH (08:45)
[2022-05-17] MEDS: ASCORBIC ACID 500 MG TABLET PO SCH (08:46)
[2022-05-17] MEDS: TAMSULOSIN HCL 0.4MG SR CAPSULE PO SCH (08:46)
[2022-05-17 09:21] LABS: PLATELET ESTIMATE NORMAL
[2022-05-17 12:00] VITALS: BP 124/80
[2022-05-17 16:30] VITALS: BP 125/83
[2022-05-17 20:41] VITALS: BP 115/59
[2022-05-17] MEDS: FAMOTIDINE 20MG TABLET PO SCH (22:05)
[2022-05-17] MEDS: ATORVASTATIN CALCIUM 40MG TABLET PO SCH (22:05)
[2022-05-18 00:26] VITALS: BP 117/75
[2022-05-18 04:00] VITALS: BP 114/73
[2022-05-18] MEDS: ACETAMINOPHEN 325MG TABLET PO PRN ×2 (04:23→20:29)
[2022-05-18] MEDS: INSULIN LISPRO 100 UNITS/ML SUBCUT SCH ×4 (06:00→17:33)
[2022-05-18] MEDS: METHYLPREDNISOLONE SOD SUCC 40 MG/ML VIAL IV SCH ×3 (06:30→21:23)
[2022-05-18] MEDS: VALPROATE SODIUM 250MG/5ML UDC PO SCH ×3 (06:30→21:25)
[2022-05-18] MEDS: BLOOD SUGAR DIAGNOSTIC STRIP TEST SCH ×4 (06:31→17:31)
[2022-05-18 07:43] LABS: EOSINOPHILS % 0.1 % (0.0-5.0); HEMATOCRIT. 29.4 % (42.0-52.0); HEMOGLOBIN. 9.8 g/dL (14.0-18.0); LYMPHOCYTES % 7.4 % (20.0-50.0); MEAN CORPUSCULAR HEMOGLOBIN 33.3 pg (28.0-32.0); MEAN CORPUSCULAR VOLUME 99.9 fL (80.0-94.0); MEAN PLATELET VOLUME 9.1 fl (7.4-10.4); MONOCYTES % 4.8 % (2.0-8.0); NEUTROPHILS % 87.7 % (40.0-76.0); PLATELET 220 x1000/uL (130-400); RED BLOOD CELL COUNT 2.95 mill/uL (4.7-6.1); RED CELL DISTRIBUTION WIDTH 14.9 % (11.6-14.6)
[2022-05-18 07:57] LABS: CHLORIDE 106 mEq/L (98-107)
[2022-05-18 08:00] VITALS: BP 113/74
[2022-05-18] MEDS: DOCUSATE SODIUM SUGAR FREE 100MG/10ML UDC NG SCH (09:09)
[2022-05-18] MEDS: PANTOPRAZOLE SODIUM 40 MG/VIAL IV SCH (09:09)
[2022-05-18] MEDS: TAMSULOSIN HCL 0.4MG SR CAPSULE PO SCH (09:10)
[2022-05-18] MEDS: ASCORBIC ACID 500 MG TABLET PO SCH (09:10)
[2022-05-18 12:00] VITALS: BP 120/60
[2022-05-18 16:00] VITALS: BP 116/74
[2022-05-18] MEDS: ATORVASTATIN CALCIUM 40MG TABLET PO SCH (20:29)
[2022-05-18] MEDS: FAMOTIDINE 20MG TABLET PO SCH (20:29)
[2022-05-18 20:51] VITALS: BP 114/76
[2022-05-19] MEDS: BLOOD SUGAR DIAGNOSTIC STRIP TEST SCH ×4 (00:14→18:23)
[2022-05-19 00:42] VITALS: BP 109/67
[2022-05-19] MEDS: INSULIN LISPRO 100 UNITS/ML SUBCUT SCH ×4 (06:00→18:00)
[2022-05-19] MEDS: VALPROATE SODIUM 250MG/5ML UDC PO SCH ×3 (06:35→21:16)
[2022-05-19] MEDS: METHYLPREDNISOLONE SOD SUCC 40 MG/ML VIAL IV SCH ×3 (06:36→21:17)
[2022-05-19 08:00] VITALS: BP 137/74
[2022-05-19] MEDS: TAMSULOSIN HCL 0.4MG SR CAPSULE PO SCH (09:20)
[2022-05-19] MEDS: DOCUSATE SODIUM SUGAR FREE 100MG/10ML UDC NG SCH (09:21)
[2022-05-19] MEDS: ASCORBIC ACID 500 MG TABLET PO SCH (09:21)
[2022-05-19] MEDS: FAMOTIDINE 20MG TABLET PO SCH ×2 (09:21→21:16)
[2022-05-19 12:00] VITALS: BP 116/59
[2022-05-19 16:00] VITALS: BP 109/74
[2022-05-19 20:00] VITALS: BP 125/77
[2022-05-19] MEDS: ATORVASTATIN CALCIUM 40MG TABLET PO SCH (21:16)
[2022-05-20] VITALS: BP 121/77
[2022-05-20] MEDS: BLOOD SUGAR DIAGNOSTIC STRIP TEST SCH ×4 (00:18→18:29)
[2022-05-20] MEDS: ACETAMINOPHEN 325MG TABLET PO PRN ×2 (00:49→18:28)
[2022-05-20 04:00] VITALS: BP 103/73
[2022-05-20] MEDS: INSULIN LISPRO 100 UNITS/ML SUBCUT SCH ×4 (06:00→18:00)
[2022-05-20] MEDS: VALPROATE SODIUM 250MG/5ML UDC PO SCH ×3 (06:13→21:03)
[2022-05-20] MEDS: METHYLPREDNISOLONE SOD SUCC 40 MG/ML VIAL IV SCH ×3 (06:14→21:03)
[2022-05-20 08:00] VITALS: BP 122/78
[2022-05-20] MEDS: DOCUSATE SODIUM SUGAR FREE 100MG/10ML UDC NG SCH (08:58)
[2022-05-20] MEDS: TAMSULOSIN HCL 0.4MG SR CAPSULE PO SCH (08:58)
[2022-05-20] MEDS: FAMOTIDINE 20MG TABLET PO SCH ×2 (08:58→20:45)
[2022-05-20] MEDS: ASCORBIC ACID 500 MG TABLET PO SCH (08:59)
[2022-05-20] MEDS ORDERED: BISACODYL 10MG SUPP PR SCH (11:00)
[2022-05-20] MEDS ORDERED: LACTULOSE 20G/30ML UDC PO SCH (11:00)
[2022-05-20 12:00] VITALS: BP 117/73
[2022-05-20 16:00] VITALS: BP 121/71
[2022-05-20 20:00] VITALS: BP 104/68
[2022-05-20] MEDS: ATORVASTATIN CALCIUM 40MG TABLET PO SCH (20:45)
[2022-05-20] MEDS: SENNOSIDES 8.6MG TABLET PO SCH (20:45)
[2022-05-21] VITALS: BP 111/76
[2022-05-21] MEDS: BLOOD SUGAR DIAGNOSTIC STRIP TEST SCH ×4 (00:31→18:54)
[2022-05-21 04:00] VITALS: BP 107/70
[2022-05-21] MEDS: INSULIN LISPRO 100 UNITS/ML SUBCUT SCH ×4 (06:00→17:18)
[2022-05-21] MEDS: METHYLPREDNISOLONE SOD SUCC 40 MG/ML VIAL IV SCH (06:30)
[2022-05-21] MEDS: ACETAMINOPHEN 325MG TABLET PO PRN ×2 (06:35→20:24)
[2022-05-21] MEDS: VALPROATE SODIUM 250MG/5ML UDC PO SCH ×3 (06:38→22:02)
[2022-05-21 07:18] LABS: HEMOGLOBIN. 9.7 g/dL (14.0-18.0); MEAN CORPUSCULAR HEMOGLOBIN 33.5 pg (28.0-32.0); MEAN CORPUSCULAR VOLUME 100.3 fL (80.0-94.0); MEAN PLATELET VOLUME 8.9 fl (7.4-10.4); PLATELET 218 x1000/uL (130-400); RED BLOOD CELL COUNT 2.89 mill/uL (4.7-6.1); RED CELL DISTRIBUTION WIDTH 16.3 % (11.6-14.6)
[2022-05-21 07:44] LABS: CHLORIDE 105 mEq/L (98-107)
[2022-05-21 08:00] VITALS: BP 116/67
[2022-05-21] MEDS ORDERED: DIATR MEGLU/DIATRIZOATE SOLN 30ML ONE (09:47)
[2022-05-21] MEDS: DOCUSATE SODIUM SUGAR FREE 100MG/10ML UDC NG SCH (10:13)
[2022-05-21] MEDS: ASCORBIC ACID 500 MG TABLET PO SCH (10:13)
[2022-05-21] MEDS: TAMSULOSIN HCL 0.4MG SR CAPSULE PO SCH (10:14)
[2022-05-21] MEDS: FAMOTIDINE 20MG TABLET PO SCH ×2 (10:14→20:24)
[2022-05-21 12:00] VITALS: BP 119/70
[2022-05-21 16:00] VITALS: BP 117/80
[2022-05-21 20:00] VITALS: BP 123/71
[2022-05-21] MEDS: ATORVASTATIN CALCIUM 40MG TABLET PO SCH (20:24)
[2022-05-21] MEDS: SENNOSIDES 8.6MG TABLET PO SCH (20:24)
[2022-05-21 23:31] LABS: PLATELET ESTIMATE NORMAL
[2022-05-22] VITALS: BP 125/71
[2022-05-22] MEDS: BLOOD SUGAR DIAGNOSTIC STRIP TEST SCH ×4 (00:57→16:59)
[2022-05-22] MEDS: ACETAMINOPHEN 325MG TABLET PO PRN ×4 (03:19→20:51)
[2022-05-22 04:00] VITALS: BP 108/75
[2022-05-22] MEDS: INSULIN LISPRO 100 UNITS/ML SUBCUT SCH ×4 (06:00→16:59)
[2022-05-22] MEDS: VALPROATE SODIUM 250MG/5ML UDC PO SCH ×3 (06:25→20:51)
[2022-05-22 08:00] VITALS: BP 113/73
[2022-05-22] MEDS: FAMOTIDINE 20MG TABLET PO SCH ×2 (08:05→20:51)
[2022-05-22] MEDS: PREDNISONE 20MG TABLET PO SCH (08:05)
[2022-05-22] MEDS: ASCORBIC ACID 500 MG TABLET PO SCH (08:05)
[2022-05-22] MEDS: TAMSULOSIN HCL 0.4MG SR CAPSULE PO SCH (08:08)
[2022-05-22] MEDS: DOCUSATE SODIUM SUGAR FREE 100MG/10ML UDC NG SCH (08:08)
[2022-05-22 09:36] LABS: BASOPHILS % 0.1 % (0.0-2.0); EOSINOPHILS % 1.2 % (0.0-5.0); HEMATOCRIT. 32.4 % (42.0-52.0); HEMOGLOBIN. 10.7 g/dL (14.0-18.0); LYMPHOCYTES % 7.4 % (20.0-50.0); MEAN CORPUSCULAR HEMOGLOBIN 33.3 pg (28.0-32.0); MEAN CORPUSCULAR VOLUME 101.3 fL (80.0-94.0); MEAN PLATELET VOLUME 8.3 fl (7.4-10.4); MONOCYTES % 8.8 % (2.0-8.0); NEUTROPHILS % 82.5 % (40.0-76.0); PLATELET 236 x1000/uL (130-400); RED CELL DISTRIBUTION WIDTH 17.2 % (11.6-14.6)
[2022-05-22 10:25] LABS: CHLORIDE 102 mEq/L (98-107)
[2022-05-22 12:00] VITALS: BP 104/66
[2022-05-22 16:00] VITALS: BP 92/61
[2022-05-22 20:00] VITALS: BP 115/66
[2022-05-22] MEDS: SENNOSIDES 8.6MG TABLET PO SCH (20:50)
[2022-05-22] MEDS: ATORVASTATIN CALCIUM 40MG TABLET PO SCH (20:51)
[2022-05-23] VITALS: BP 116/78
[2022-05-23] MEDS: ACETAMINOPHEN 325MG TABLET PO PRN ×3 (02:28→21:00)
[2022-05-23 04:00] VITALS: BP 117/78
[2022-05-23] MEDS: BLOOD SUGAR DIAGNOSTIC STRIP TEST SCH ×3 (06:00→12:00)
[2022-05-23] MEDS: INSULIN LISPRO 100 UNITS/ML SUBCUT SCH ×3 (06:00→12:00)
[2022-05-23 08:00] VITALS: BP 135/74
[2022-05-23 08:47] LABS: HEMATOCRIT. 32.5 % (42.0-52.0); HEMOGLOBIN. 10.7 g/dL (14.0-18.0); MEAN CORPUSCULAR HEMOGLOBIN 33.4 pg (28.0-32.0); MEAN CORPUSCULAR VOLUME 101.3 fL (80.0-94.0); MEAN PLATELET VOLUME 8.6 fl (7.4-10.4); PLATELET 223 x1000/uL (130-400); RED BLOOD CELL COUNT 3.21 mill/uL (4.7-6.1); RED CELL DISTRIBUTION WIDTH 17.2 % (11.6-14.6)
[2022-05-23] MEDS: PREDNISONE 20MG TABLET PO SCH (09:16)
[2022-05-23] MEDS: ASCORBIC ACID 500 MG TABLET PO SCH (09:17)
[2022-05-23] MEDS: DOCUSATE SODIUM SUGAR FREE 100MG/10ML UDC NG SCH (09:17)
[2022-05-23] MEDS: TAMSULOSIN HCL 0.4MG SR CAPSULE PO SCH (09:17)
[2022-05-23] MEDS: FAMOTIDINE 20MG TABLET PO SCH ×2 (09:17→20:51)
[2022-05-23] MEDS: VALPROATE SODIUM 250MG/5ML UDC PO SCH ×3 (09:20→21:00)
[2022-05-23 09:49] LABS: PLATELET ESTIMATE NORMAL
[2022-05-23 10:11] LABS: CHLORIDE 107 mEq/L (98-107)
[2022-05-23 12:00] VITALS: BP 128/70
[2022-05-23 16:00] VITALS: BP 130/68
[2022-05-23 20:00] VITALS: BP 92/68
[2022-05-23] MEDS: SENNOSIDES 8.6MG TABLET PO SCH (20:51)
[2022-05-23] MEDS: ATORVASTATIN CALCIUM 40MG TABLET PO SCH (20:52)
[2022-05-24] VITALS: BP 98/70
[2022-05-24 04:00] VITALS: BP 99/61
[2022-05-24] MEDS: VALPROATE SODIUM 250MG/5ML UDC PO SCH ×3 (05:05→23:09)
[2022-05-24] MEDS: ACETAMINOPHEN 325MG TABLET PO PRN ×3 (05:06→16:24)
[2022-05-24] MEDS: BLOOD SUGAR DIAGNOSTIC STRIP TEST SCH ×4 (06:00→17:46)
[2022-05-24] MEDS: INSULIN LISPRO 100 UNITS/ML SUBCUT SCH ×4 (06:00→18:00)
[2022-05-24 08:00] VITALS: BP 91/58
[2022-05-24 08:07] LABS: BASOPHILS % 0.2 % (0.0-2.0); EOSINOPHILS % 1.1 % (0.0-5.0); HEMOGLOBIN. 10.2 g/dL (14.0-18.0); LYMPHOCYTES % 8.2 % (20.0-50.0); MEAN CORPUSCULAR HEMOGLOBIN 33.5 pg (28.0-32.0); MEAN CORPUSCULAR VOLUME 101.5 fL (80.0-94.0); MEAN PLATELET VOLUME 8.7 fl (7.4-10.4); MONOCYTES % 10.6 % (2.0-8.0); NEUTROPHILS % 79.9 % (40.0-76.0); PLATELET 194 x1000/uL (130-400); RED BLOOD CELL COUNT 3.05 mill/uL (4.7-6.1); RED CELL DISTRIBUTION WIDTH 17.6 % (11.6-14.6)
[2022-05-24] MEDS: FAMOTIDINE 20MG TABLET PO SCH ×2 (09:48→23:10)
[2022-05-24] MEDS: TAMSULOSIN HCL 0.4MG SR CAPSULE PO SCH (09:48)
[2022-05-24] MEDS: ASCORBIC ACID 500 MG TABLET PO SCH (09:48)
[2022-05-24] MEDS: DOCUSATE SODIUM SUGAR FREE 100MG/10ML UDC NG SCH (09:48)
[2022-05-24] MEDS: PREDNISONE 20MG TABLET PO SCH (09:48)
[2022-05-24 09:53] LABS: CHLORIDE 109 mEq/L (98-107)
[2022-05-24 12:00] VITALS: BP 113/62
[2022-05-24] MEDS ORDERED: SODIUM BICARBONATE 650 MG TABLET PO NR (12:00)
[2022-05-24] MEDS ORDERED: LIPASE/PROTEASE/AMYLASE 4,200/14,200/24,600 UNITS CAP DR PO NR (12:00)
[2022-05-24 16:00] VITALS: BP 108/63
[2022-05-24 20:00] VITALS: BP 108/71
[2022-05-24 20:05] LABS: BASOPHILS % 0.2 % (0.0-2.0); EOSINOPHILS % 1.6 % (0.0-5.0); HEMOGLOBIN. 10.4 g/dL (14.0-18.0); LYMPHOCYTES % 7.1 % (20.0-50.0); MEAN CORPUSCULAR HEMOGLOBIN 33.9 pg (28.0-32.0); MEAN CORPUSCULAR VOLUME 100.6 fL (80.0-94.0); MEAN PLATELET VOLUME 8.4 fl (7.4-10.4); MONOCYTES % 9.1 % (2.0-8.0); PLATELET 212 x1000/uL (130-400); RED BLOOD CELL COUNT 3.08 mill/uL (4.7-6.1); RED CELL DISTRIBUTION WIDTH 17.3 % (11.6-14.6)
[2022-05-24 20:23] LABS: CHLORIDE 108 mEq/L (98-107)
[2022-05-24] MEDS: SENNOSIDES 8.6MG TABLET PO SCH (23:10)
[2022-05-24] MEDS: ATORVASTATIN CALCIUM 40MG TABLET PO SCH (23:10)
[2022-05-25] VITALS: BP 113/76
[2022-05-25 04:00] VITALS: BP 129/70
[2022-05-25] MEDS: BLOOD SUGAR DIAGNOSTIC STRIP TEST SCH ×4 (06:00→17:59)
[2022-05-25] MEDS: INSULIN LISPRO 100 UNITS/ML SUBCUT SCH ×4 (06:00→17:59)
[2022-05-25 07:14] LABS: BASOPHILS % 0.3 % (0.0-2.0); EOSINOPHILS % 2.7 % (0.0-5.0); HEMATOCRIT. 33.9 % (42.0-52.0); LYMPHOCYTES % 8.4 % (20.0-50.0); MEAN CORPUSCULAR HEMOGLOBIN 33.1 pg (28.0-32.0); MEAN PLATELET VOLUME 8.5 fl (7.4-10.4); MONOCYTES % 11.3 % (2.0-8.0); NEUTROPHILS % 77.3 % (40.0-76.0); PLATELET 216 x1000/uL (130-400); RED BLOOD CELL COUNT 3.32 mill/uL (4.7-6.1); RED CELL DISTRIBUTION WIDTH 17.5 % (11.6-14.6)
[2022-05-25] MEDS: VALPROATE SODIUM 250MG/5ML UDC PO SCH ×3 (07:34→21:38)
[2022-05-25 08:00] VITALS: BP 112/74
[2022-05-25 08:56] LABS: CHLORIDE 107 mEq/L (98-107)
[2022-05-25] MEDS: DOCUSATE SODIUM SUGAR FREE 100MG/10ML UDC NG SCH (09:14)
[2022-05-25] MEDS: PREDNISONE 20MG TABLET PO SCH (09:15)
[2022-05-25] MEDS: ASCORBIC ACID 500 MG TABLET PO SCH (09:15)
[2022-05-25] MEDS: FAMOTIDINE 20MG TABLET PO SCH ×2 (09:15→21:38)
[2022-05-25] MEDS: TAMSULOSIN HCL 0.4MG SR CAPSULE PO SCH (09:18)
[2022-05-25 12:00] VITALS: BP_SYST 102; BP_SYST 119; BP_DIAS 66; BP_DIAS 79
[2022-05-25 16:00] VITALS: BP 108/76
[2022-05-25 20:00] VITALS: BP 105/67
[2022-05-25] MEDS: ATORVASTATIN CALCIUM 40MG TABLET PO SCH (21:38)
[2022-05-25] MEDS: SENNOSIDES 8.6MG TABLET PO SCH (21:38)
[2022-05-26] VITALS: BP 131/86
[2022-05-26 04:00] VITALS: BP 142/81
[2022-05-26] MEDS: VALPROATE SODIUM 250MG/5ML UDC PO SCH ×3 (05:55→22:01)
[2022-05-26] MEDS: INSULIN LISPRO 100 UNITS/ML SUBCUT SCH ×4 (06:00→18:00)
[2022-05-26] MEDS: BLOOD SUGAR DIAGNOSTIC STRIP TEST SCH ×4 (06:09→18:45)
[2022-05-26 08:00] VITALS: BP 122/72
[2022-05-26] MEDS: PREDNISONE 20MG TABLET PO SCH (08:34)
[2022-05-26] MEDS: DOCUSATE SODIUM SUGAR FREE 100MG/10ML UDC NG SCH (08:34)
[2022-05-26] MEDS: ASCORBIC ACID 500 MG TABLET PO SCH (08:34)
[2022-05-26] MEDS: FAMOTIDINE 20MG TABLET PO SCH ×2 (08:34→22:01)
[2022-05-26] MEDS: TAMSULOSIN HCL 0.4MG SR CAPSULE PO SCH (08:34)
[2022-05-26] MEDS: ACETAMINOPHEN 325MG TABLET PO PRN (08:40)
[2022-05-26 12:00] VITALS: BP 118/65
[2022-05-26 16:00] VITALS: BP 121/62
[2022-05-26 20:00] VITALS: BP 112/77
[2022-05-26] MEDS: SENNOSIDES 8.6MG TABLET PO SCH (22:01)
[2022-05-26] MEDS: ATORVASTATIN CALCIUM 40MG TABLET PO SCH (22:01)
[2022-05-27] VITALS: BP 115/78
[2022-05-27 04:00] VITALS: BP 107/5
[2022-05-27] MEDS: VALPROATE SODIUM 250MG/5ML UDC PO SCH ×3 (06:00→22:56)
[2022-05-27] MEDS: BLOOD SUGAR DIAGNOSTIC STRIP TEST SCH ×4 (06:00→18:21)
[2022-05-27] MEDS: INSULIN LISPRO 100 UNITS/ML SUBCUT SCH ×4 (06:00→18:00)
[2022-05-27 08:00] VITALS: BP 122/74
[2022-05-27] MEDS: ACETAMINOPHEN 325MG TABLET PO PRN (08:16)
[2022-05-27] MEDS: ASCORBIC ACID 500 MG TABLET PO SCH (08:16)
[2022-05-27] MEDS: DOCUSATE SODIUM SUGAR FREE 100MG/10ML UDC NG SCH (08:16)
[2022-05-27] MEDS: TAMSULOSIN HCL 0.4MG SR CAPSULE PO SCH (08:16)
[2022-05-27] MEDS: FAMOTIDINE 20MG TABLET PO SCH ×2 (08:16→22:57)
[2022-05-27] MEDS: PREDNISONE 20MG TABLET PO SCH (08:16)
[2022-05-27 12:00] VITALS: BP 104/67
[2022-05-27 16:00] VITALS: BP 100/72
[2022-05-27] MEDS: ATORVASTATIN CALCIUM 40MG TABLET PO SCH (22:57)
[2022-05-27] MEDS: SENNOSIDES 8.6MG TABLET PO SCH (22:57)
[2022-05-28] MEDS: BLOOD SUGAR DIAGNOSTIC STRIP TEST SCH ×3 (06:00→12:28)
[2022-05-28] MEDS: VALPROATE SODIUM 250MG/5ML UDC PO SCH ×3 (06:00→21:23)
[2022-05-28] MEDS: INSULIN LISPRO 100 UNITS/ML SUBCUT SCH ×3 (06:00→12:00)
[2022-05-28 08:00] VITALS: BP 118/76
[2022-05-28] MEDS: TAMSULOSIN HCL 0.4MG SR CAPSULE PO SCH (08:53)
[2022-05-28] MEDS: PREDNISONE 20MG TABLET PO SCH (08:53)
[2022-05-28] MEDS: ACETAMINOPHEN 325MG TABLET PO PRN ×2 (08:53→16:22)
[2022-05-28] MEDS: FAMOTIDINE 20MG TABLET PO SCH ×2 (08:53→21:23)
[2022-05-28] MEDS: ASCORBIC ACID 500 MG TABLET PO SCH (08:53)
[2022-05-28] MEDS: DOCUSATE SODIUM SUGAR FREE 100MG/10ML UDC NG SCH (08:53)
[2022-05-28] MEDS ORDERED: LACTULOSE 20G/30ML UDC GT NR (11:45)
[2022-05-28 12:00] VITALS: BP 99/68
[2022-05-28 16:00] VITALS: BP 121/78
[2022-05-28 20:00] VITALS: BP 118/64
[2022-05-28] MEDS: ATORVASTATIN CALCIUM 40MG TABLET PO SCH (21:00)
[2022-05-28] MEDS: SENNOSIDES 8.6MG TABLET PO SCH (21:23)
[2022-05-29] VITALS: BP 116/62
[2022-05-29] MEDS: INSULIN LISPRO 100 UNITS/ML SUBCUT SCH ×4 (06:00→18:00)
[2022-05-29] MEDS: BLOOD SUGAR DIAGNOSTIC STRIP TEST SCH ×3 (06:00→12:59)
[2022-05-29 08:00] VITALS: BP 112/79
[2022-05-29] MEDS: TAMSULOSIN HCL 0.4MG SR CAPSULE PO SCH (09:36)
[2022-05-29] MEDS: PREDNISONE 20MG TABLET PO SCH (09:36)
[2022-05-29] MEDS: ASCORBIC ACID 500 MG TABLET PO SCH (09:36)
[2022-05-29] MEDS: FAMOTIDINE 20MG TABLET PO SCH ×2 (09:36→22:21)
[2022-05-29] MEDS: DOCUSATE SODIUM SUGAR FREE 100MG/10ML UDC NG SCH (09:36)
[2022-05-29 12:00] VITALS: BP 98/57
[2022-05-29] MEDS: VALPROATE SODIUM 250MG/5ML UDC PO SCH ×2 (13:04→22:22)
[2022-05-29 16:00] VITALS: BP 100/69
[2022-05-29 20:00] VITALS: BP 118/62
[2022-05-29] MEDS: ATORVASTATIN CALCIUM 40MG TABLET PO SCH (22:21)
[2022-05-29] MEDS: SENNOSIDES 8.6MG TABLET PO SCH (22:21)
[2022-05-30] VITALS: BP 122/64
[2022-05-30 08:00] VITALS: BP 105/71
[2022-05-30] MEDS: FAMOTIDINE 20MG TABLET PO SCH ×2 (08:53→21:54)
[2022-05-30] MEDS: PREDNISONE 20MG TABLET PO SCH (08:53)
[2022-05-30] MEDS: DOCUSATE SODIUM SUGAR FREE 100MG/10ML UDC NG SCH (08:54)
[2022-05-30] MEDS ORDERED: NALOXONE HCL 0.4MG/ML VIAL IV PRN (11:15)
[2022-05-30] MEDS: HYDROCODONE/ACETAMINOPHEN 10/325MG TABLET PO PRN ×2 (11:40→21:54)
[2022-05-30 12:00] VITALS: BP 117/79
[2022-05-30 16:00] VITALS: BP 116/68
[2022-05-30] MEDS: SENNOSIDES 8.6MG TABLET PO SCH (21:54)
[2022-05-31] VITALS: BP 109/61
[2022-05-31 04:00] VITALS: BP 111/76
[2022-05-31] MEDS: HYDROCODONE/ACETAMINOPHEN 10/325MG TABLET PO PRN ×2 (07:03→22:46)
[2022-05-31] MEDS: PREDNISONE 20MG TABLET PO SCH (07:50)
[2022-05-31 08:00] VITALS: BP 100/79
[2022-05-31] MEDS: DOCUSATE SODIUM SUGAR FREE 100MG/10ML UDC NG SCH (09:00)
[2022-05-31] MEDS: FAMOTIDINE 20MG TABLET PO SCH ×2 (09:00→22:46)
[2022-05-31 12:00] VITALS: BP 98/72
[2022-05-31 16:00] VITALS: BP 123/75
[2022-05-31 20:00] VITALS: BP 125/60
[2022-05-31] MEDS: SENNOSIDES 8.6MG TABLET PO SCH (22:46)
[2022-06-01] VITALS: BP 120/64
[2022-06-01] MEDS: HYDROCODONE/ACETAMINOPHEN 10/325MG TABLET PO PRN ×2 (04:34→21:12)
[2022-06-01 08:00] VITALS: BP 108/68
[2022-06-01] MEDS: PREDNISONE 20MG TABLET PO SCH (10:15)
[2022-06-01] MEDS: FAMOTIDINE 20MG TABLET PO SCH ×2 (10:15→21:08)
[2022-06-01] MEDS: DOCUSATE SODIUM SUGAR FREE 100MG/10ML UDC NG SCH (10:16)
[2022-06-01 12:00] VITALS: BP 118/65
[2022-06-01 13:01] LABS: CHLORIDE 101 mEq/L (98-107); HEMATOCRIT. 31.1 % (42.0-52.0); HEMOGLOBIN. 10.5 g/dL (14.0-18.0); MEAN CORPUSCULAR HEMOGLOBIN 33.8 pg (28.0-32.0); MEAN CORPUSCULAR VOLUME 100.1 fL (80.0-94.0); PLATELET 135 x1000/uL (130-400); RED BLOOD CELL COUNT 3.11 mill/uL (4.7-6.1); RED CELL DISTRIBUTION WIDTH 17.6 % (11.6-14.6)
[2022-06-01 13:17] LABS: T4 FREE 1.95 ng/dL (0.76-1.46)
[2022-06-01 14:06] LABS: PLATELET ESTIMATE NORMAL
[2022-06-01 15:59] VITALS: BP 110/75
[2022-06-01 20:00] VITALS: BP 117/80
[2022-06-01] MEDS: SENNOSIDES 8.6MG TABLET PO SCH (21:08)
[2022-06-02] VITALS: BP 101/66
[2022-06-02 04:00] VITALS: BP 109/72
[2022-06-02] MEDS: HYDROCODONE/ACETAMINOPHEN 10/325MG TABLET PO PRN ×3 (04:54→22:11)
[2022-06-02 08:00] VITALS: BP 97/65
[2022-06-02] MEDS: DOCUSATE SODIUM SUGAR FREE 100MG/10ML UDC NG SCH (10:29)
[2022-06-02] MEDS: PREDNISONE 20MG TABLET PO SCH (10:29)
[2022-06-02] MEDS: FAMOTIDINE 20MG TABLET PO SCH ×2 (10:29→22:08)
[2022-06-02 12:00] VITALS: BP 105/64
[2022-06-02 16:00] VITALS: BP 103/73
[2022-06-02 20:00] VITALS: BP 96/72
[2022-06-02] MEDS: SENNOSIDES 8.6MG TABLET PO SCH (22:09)
[2022-06-03] VITALS: BP 99/75
[2022-06-03 04:00] VITALS: BP 115/66
[2022-06-03] MEDS: HYDROCODONE/ACETAMINOPHEN 10/325MG TABLET PO PRN ×2 (05:23→12:55)
[2022-06-03 06:58] LABS: HEMATOCRIT. 30.7 % (42.0-52.0); HEMOGLOBIN. 10.2 g/dL (14.0-18.0); MEAN CORPUSCULAR HEMOGLOBIN 33.6 pg (28.0-32.0); MEAN PLATELET VOLUME 7.9 fl (7.4-10.4); PLATELET 157 x1000/uL (130-400); RED BLOOD CELL COUNT 3.04 mill/uL (4.7-6.1); RED CELL DISTRIBUTION WIDTH 17.3 % (11.6-14.6)
[2022-06-03 07:22] LABS: CHLORIDE 101 mEq/L (98-107)
[2022-06-03 08:00] VITALS: BP 113/68
[2022-06-03] MEDS: DOCUSATE SODIUM SUGAR FREE 100MG/10ML UDC NG SCH (10:16)
[2022-06-03] MEDS: PREDNISONE 20MG TABLET PO SCH (10:16)
[2022-06-03] MEDS: FAMOTIDINE 20MG TABLET PO SCH ×2 (10:16→21:35)
[2022-06-03 12:00] VITALS: BP 105/63
[2022-06-03] MEDS ORDERED: POTASSIUM CHLORIDE 20MEQ TABLET SR PO NR (14:15)
[2022-06-03 19:50] VITALS: BP 80/54
[2022-06-03 21:13] LABS: PLATELET ESTIMATE NORMAL
[2022-06-03] MEDS: SENNOSIDES 8.6MG TABLET PO SCH (21:35)
[2022-06-04 00:04] VITALS: BP 101/60
[2022-06-04 08:00] VITALS: BP 114/74
[2022-06-04 08:07] LABS: HEMOGLOBIN. 9.9 g/dL (14.0-18.0); MEAN CORPUSCULAR HEMOGLOBIN 33.8 pg (28.0-32.0); MEAN CORPUSCULAR VOLUME 99.2 fL (80.0-94.0); MEAN PLATELET VOLUME 7.3 fl (7.4-10.4); PLATELET 212 x1000/uL (130-400); RED BLOOD CELL COUNT 2.92 mill/uL (4.7-6.1); RED CELL DISTRIBUTION WIDTH 16.9 % (11.6-14.6)
[2022-06-04 08:25] LABS: CHLORIDE 102 mEq/L (98-107)
[2022-06-04] MEDS: DOCUSATE SODIUM SUGAR FREE 100MG/10ML UDC NG SCH (08:41)
[2022-06-04] MEDS: FAMOTIDINE 20MG TABLET PO SCH ×2 (08:41→20:41)
[2022-06-04] MEDS: PREDNISONE 20MG TABLET PO SCH (08:41)
[2022-06-04] MEDS: HYDROCODONE/ACETAMINOPHEN 10/325MG TABLET PO PRN (08:42)
[2022-06-04 11:06] LABS: PLATELET ESTIMATE NORMAL
[2022-06-04 12:00] VITALS: BP 103/63
[2022-06-04 16:00] VITALS: BP 107/78
[2022-06-04 20:00] VITALS: BP 103/72
[2022-06-04] MEDS: SENNOSIDES 8.6MG TABLET PO SCH (20:41)
[2022-06-05] VITALS: BP 134/54
[2022-06-05 04:00] VITALS: BP 125/70
[2022-06-05 08:00] VITALS: BP 98/71
[2022-06-05 08:36] LABS: HEMATOCRIT. 29.6 % (42.0-52.0); HEMOGLOBIN. 9.9 g/dL (14.0-18.0); MEAN CORPUSCULAR HEMOGLOBIN 33.8 pg (28.0-32.0); MEAN CORPUSCULAR VOLUME 100.7 fL (80.0-94.0); MEAN PLATELET VOLUME 7.3 fl (7.4-10.4); PLATELET 220 x1000/uL (130-400); RED BLOOD CELL COUNT 2.94 mill/uL (4.7-6.1); RED CELL DISTRIBUTION WIDTH 17.2 % (11.6-14.6)
[2022-06-05] MEDS: FAMOTIDINE 20MG TABLET PO SCH ×2 (09:00→22:07)
[2022-06-05 09:16] LABS: CHLORIDE 106 mEq/L (98-107)
[2022-06-05] MEDS: PREDNISONE 20MG TABLET PO SCH (09:37)
[2022-06-05] MEDS: DOCUSATE SODIUM SUGAR FREE 100MG/10ML UDC NG SCH (09:37)
[2022-06-05 10:41] LABS: PLATELET ESTIMATE NORMAL
[2022-06-05 12:00] VITALS: BP 99/69
[2022-06-05 16:00] VITALS: BP 130/78
[2022-06-05 20:00] VITALS: BP 132/82
[2022-06-05] MEDS: SENNOSIDES 8.6MG TABLET PO SCH (22:06)
[2022-06-06] VITALS: BP 130/80
[2022-06-06] MEDS ORDERED: POTASSIUM CHLORIDE 20MEQ TABLET SR PO NR (01:30)
[2022-06-06 08:00] VITALS: BP 129/83
[2022-06-06] MEDS: PREDNISONE 20MG TABLET PO SCH (08:00)
[2022-06-06] MEDS: DOCUSATE SODIUM SUGAR FREE 100MG/10ML UDC NG SCH (09:45)
[2022-06-06] MEDS: FAMOTIDINE 20MG TABLET PO SCH ×2 (09:45→21:45)
[2022-06-06 12:00] VITALS: BP 119/75
[2022-06-06 16:00] VITALS: BP 118/78
[2022-06-06] MEDS: CEFTRIAXONE 1,000 MG in DEXTROSE 5% WATER 50 ML IV SCH (16:58)
[2022-06-06 20:00] VITALS: BP 134/65
[2022-06-06] MEDS: SENNOSIDES 8.6MG TABLET PO SCH (21:45)
[2022-06-07 04:00] VITALS: BP 129/55
[2022-06-07 06:46] LABS: BASOPHILS % 0.1 % (0.0-2.0); EOSINOPHILS % 0.5 % (0.0-5.0); HEMATOCRIT. 34.8 % (42.0-52.0); HEMOGLOBIN. 11.3 g/dL (14.0-18.0); LYMPHOCYTES % 7.9 % (20.0-50.0); MEAN CORPUSCULAR HEMOGLOBIN 33.3 pg (28.0-32.0); MEAN CORPUSCULAR VOLUME 102.2 fL (80.0-94.0); MEAN PLATELET VOLUME 7.5 fl (7.4-10.4); MONOCYTES % 11.8 % (2.0-8.0); NEUTROPHILS % 79.7 % (40.0-76.0); PLATELET 286 x1000/uL (130-400); RED BLOOD CELL COUNT 3.41 mill/uL (4.7-6.1); RED CELL DISTRIBUTION WIDTH 16.9 % (11.6-14.6)
[2022-06-07 07:10] LABS: CHLORIDE 107 mEq/L (98-107)
[2022-06-07 08:00] VITALS: BP 123/84
[2022-06-07] MEDS: DOCUSATE SODIUM SUGAR FREE 100MG/10ML UDC NG SCH (08:07)
[2022-06-07] MEDS: FAMOTIDINE 20MG TABLET PO SCH ×2 (08:07→20:26)
[2022-06-07] MEDS: PREDNISONE 20MG TABLET PO SCH (08:07)
[2022-06-07] MEDS ORDERED: POTASSIUM CHLORIDE 20MEQ TABLET SR PO SCH (11:00)
[2022-06-07 12:00] VITALS: BP 136/86
[2022-06-07] MEDS: HYDROCODONE/ACETAMINOPHEN 5/325MG TABLET PO PRN (13:07)
[2022-06-07 16:00] VITALS: BP 131/82
[2022-06-07] MEDS: CEFTRIAXONE 1,000 MG in DEXTROSE 5% WATER 50 ML IV SCH (16:55)
[2022-06-07 20:00] VITALS: BP 102/67
[2022-06-07] MEDS: SENNOSIDES 8.6MG TABLET PO SCH (20:26)
[2022-06-08] VITALS: BP 109/65
[2022-06-08 04:00] VITALS: BP 114/74
[2022-06-08 06:47] LABS: BASOPHILS % 0.2 % (0.0-2.0); EOSINOPHILS % 0.6 % (0.0-5.0); HEMATOCRIT. 32.3 % (42.0-52.0); HEMOGLOBIN. 10.5 g/dL (14.0-18.0); LYMPHOCYTES % 9.7 % (20.0-50.0); MEAN CORPUSCULAR HEMOGLOBIN 33.4 pg (28.0-32.0); MEAN CORPUSCULAR VOLUME 103.1 fL (80.0-94.0); MEAN PLATELET VOLUME 7.3 fl (7.4-10.4); MONOCYTES % 8.3 % (2.0-8.0); NEUTROPHILS % 81.2 % (40.0-76.0); PLATELET 320 x1000/uL (130-400); RED BLOOD CELL COUNT 3.14 mill/uL (4.7-6.1); RED CELL DISTRIBUTION WIDTH 17.7 % (11.6-14.6)
[2022-06-08 07:11] LABS: CHLORIDE 111 mEq/L (98-107)
[2022-06-08 08:00] VITALS: BP 97/64
[2022-06-08] MEDS: PREDNISONE 20MG TABLET PO SCH (08:04)
[2022-06-08] MEDS: FAMOTIDINE 20MG TABLET PO SCH ×2 (08:04→20:31)
[2022-06-08] MEDS: DOCUSATE SODIUM SUGAR FREE 100MG/10ML UDC NG SCH (08:05)
[2022-06-08] MEDS: HYDROCODONE/ACETAMINOPHEN 5/325MG TABLET PO PRN ×3 (08:06→23:40)
[2022-06-08 12:00] VITALS: BP 123/81
[2022-06-08] MEDS: GABAPENTIN 100MG CAPSULE PO SCH ×2 (13:11→20:32)
[2022-06-08 16:00] VITALS: BP 118/82
[2022-06-08] MEDS: CEFTRIAXONE 1,000 MG in DEXTROSE 5% WATER 50 ML IV SCH (18:04)
[2022-06-08] MEDS ORDERED: NALOXONE HCL 0.4MG/ML VIAL IV PRN (18:30)
[2022-06-08 20:00] VITALS: BP 115/77
[2022-06-08] MEDS: SENNOSIDES 8.6MG TABLET PO SCH (20:31)
[2022-06-09] VITALS: BP 109/74
[2022-06-09 04:00] VITALS: BP 117/73
[2022-06-09] MEDS: GABAPENTIN 100MG CAPSULE PO SCH ×3 (05:51→21:38)
[2022-06-09 07:26] LABS: BASOPHILS % 0.3 % (0.0-2.0); EOSINOPHILS % 0.7 % (0.0-5.0); HEMATOCRIT. 30.3 % (42.0-52.0); HEMOGLOBIN. 9.8 g/dL (14.0-18.0); LYMPHOCYTES % 10.9 % (20.0-50.0); MEAN CORPUSCULAR HEMOGLOBIN 33.2 pg (28.0-32.0); MEAN CORPUSCULAR VOLUME 102.9 fL (80.0-94.0); MEAN PLATELET VOLUME 7.1 fl (7.4-10.4); MONOCYTES % 7.2 % (2.0-8.0); NEUTROPHILS % 80.9 % (40.0-76.0); PLATELET 342 x1000/uL (130-400); RED BLOOD CELL COUNT 2.94 mill/uL (4.7-6.1); RED CELL DISTRIBUTION WIDTH 17.1 % (11.6-14.6)
[2022-06-09 07:27] LABS: CHLORIDE 112 mEq/L (98-107)
[2022-06-09 08:00] VITALS: BP 127/82
[2022-06-09] MEDS: FAMOTIDINE 20MG TABLET PO SCH ×2 (08:27→21:00)
[2022-06-09] MEDS: PREDNISONE 20MG TABLET PO SCH (08:27)
[2022-06-09 12:00] VITALS: BP 118/79
[2022-06-09] MEDS: HYDROCODONE/ACETAMINOPHEN 5/325MG TABLET PO PRN (12:12)
[2022-06-09 16:00] VITALS: BP 115/74
[2022-06-09] MEDS: CEFTRIAXONE 1,000 MG in DEXTROSE 5% WATER 50 ML IV SCH (16:56)
[2022-06-09 20:00] VITALS: BP 124/76
[2022-06-09] MEDS: SENNOSIDES 8.6MG TABLET PO SCH (21:00)
[2022-06-10] VITALS: BP 130/83
[2022-06-10] MEDS: HYDROCODONE/ACETAMINOPHEN 5/325MG TABLET PO PRN ×2 (00:13→08:26)
[2022-06-10 04:00] VITALS: BP 123/69
[2022-06-10] MEDS: GABAPENTIN 100MG CAPSULE PO SCH ×3 (05:19→23:14)
[2022-06-10 08:00] VITALS: BP 119/78
[2022-06-10] MEDS: FAMOTIDINE 20MG TABLET PO SCH ×2 (08:25→23:15)
[2022-06-10] MEDS: PREDNISONE 20MG TABLET PO SCH (08:25)
[2022-06-10 12:00] VITALS: BP 117/77
[2022-06-10 16:00] VITALS: BP 111/75
[2022-06-10] MEDS: CEFTRIAXONE 1,000 MG in DEXTROSE 5% WATER 50 ML IV SCH (16:31)
[2022-06-10 20:00] VITALS: BP 112/81
[2022-06-10] MEDS: SENNOSIDES 8.6MG TABLET PO SCH (23:14)
[2022-06-11] VITALS: BP 116/83
[2022-06-11] MEDS: GABAPENTIN 100MG CAPSULE PO SCH ×3 (06:46→21:02)
[2022-06-11 07:14] LABS: BASOPHILS % 0.2 % (0.0-2.0); EOSINOPHILS % 0.3 % (0.0-5.0); HEMATOCRIT. 32.5 % (42.0-52.0); HEMOGLOBIN. 10.8 g/dL (14.0-18.0); LYMPHOCYTES % 7.7 % (20.0-50.0); MEAN CORPUSCULAR HEMOGLOBIN 33.8 pg (28.0-32.0); MEAN CORPUSCULAR VOLUME 101.3 fL (80.0-94.0); MEAN PLATELET VOLUME 6.9 fl (7.4-10.4); MONOCYTES % 6.1 % (2.0-8.0); NEUTROPHILS % 85.7 % (40.0-76.0); PLATELET 430 x1000/uL (130-400); RED BLOOD CELL COUNT 3.21 mill/uL (4.7-6.1); RED CELL DISTRIBUTION WIDTH 17.2 % (11.6-14.6)
[2022-06-11 07:36] LABS: CHLORIDE 110 mEq/L (98-107)
[2022-06-11 07:44] LABS: CREATINE KINASE 72 IU/L (39-308)
[2022-06-11 08:00] VITALS: BP 135/72
[2022-06-11] MEDS: FAMOTIDINE 20MG TABLET PO SCH ×2 (08:33→20:52)
[2022-06-11] MEDS: PREDNISONE 20MG TABLET PO SCH (08:33)
[2022-06-11] MEDS: HYDROCODONE/ACETAMINOPHEN 5/325MG TABLET PO PRN ×2 (08:43→15:37)
[2022-06-11 12:00] VITALS: BP 114/67
[2022-06-11 16:00] VITALS: BP 119/82
[2022-06-11] MEDS ORDERED: IBUPROFEN 600MG TABLET PO PRN (19:30)
[2022-06-11 20:00] VITALS: BP 132/64
[2022-06-11] MEDS: SENNOSIDES 8.6MG TABLET PO SCH (20:52)
[2022-06-12] VITALS: BP 136/80
[2022-06-12] MEDS: HYDROCODONE/ACETAMINOPHEN 10/325MG TABLET PO PRN (02:22)
[2022-06-12] MEDS: GABAPENTIN 100MG CAPSULE PO SCH ×3 (06:29→22:00)
[2022-06-12 08:00] VITALS: BP 110/83
[2022-06-12] MEDS: FAMOTIDINE 20MG TABLET PO SCH ×2 (09:41→21:00)
[2022-06-12] MEDS: PREDNISONE 20MG TABLET PO SCH (09:41)
[2022-06-12 12:00] VITALS: BP 118/81
[2022-06-12] MEDS ORDERED: DIATR MEGLU/DIATRIZOATE SOLN 30ML PO NR (14:45)
[2022-06-12] MEDS ORDERED: DIATR MEGLU/DIATRIZOATE SOLN 30ML ONE (14:58)
[2022-06-12 16:00] VITALS: BP 113/80
[2022-06-12] MEDS ORDERED: NA PHOS,M-B/NA PHOS,DI-BA ENEMA 118ML PR NR (16:30)
[2022-06-12 20:00] VITALS: BP 126/86
[2022-06-12] MEDS: SENNOSIDES 8.6MG TABLET PO SCH (21:00)
[2022-06-12] MEDS: BACLOFEN 10MG TABLET PO SCH (22:00)
[2022-06-13] VITALS: BP 126/86
[2022-06-13 04:00] VITALS: BP 120/64
[2022-06-13] MEDS: BACLOFEN 10MG TABLET PO SCH ×3 (06:00→22:09)
[2022-06-13] MEDS: GABAPENTIN 100MG CAPSULE PO SCH ×3 (06:00→22:09)
[2022-06-13 08:17] LABS: CHLORIDE 112 mEq/L (98-107)
[2022-06-13 10:51] LABS: BASOPHILS % 0.2 % (0.0-2.0); EOSINOPHILS % 0.2 % (0.0-5.0); HEMATOCRIT. 34.5 % (42.0-52.0); HEMOGLOBIN. 11.4 g/dL (14.0-18.0); LYMPHOCYTES % 9.5 % (20.0-50.0); MEAN CORPUSCULAR HEMOGLOBIN 33.5 pg (28.0-32.0); MEAN CORPUSCULAR VOLUME 101.1 fL (80.0-94.0); MONOCYTES % 8.9 % (2.0-8.0); NEUTROPHILS % 81.2 % (40.0-76.0); PLATELET 476 x1000/uL (130-400); RED BLOOD CELL COUNT 3.41 mill/uL (4.7-6.1)
[2022-06-13] MEDS: FAMOTIDINE 20MG TABLET PO SCH ×2 (12:55→22:08)
[2022-06-13] MEDS: PREDNISONE 20MG TABLET PO SCH (12:56)
[2022-06-13] MEDS: HYDROCODONE/ACETAMINOPHEN 10/325MG TABLET PO PRN ×2 (12:56→20:48)
[2022-06-13 20:00] VITALS: BP 90/65
[2022-06-13] MEDS: SENNOSIDES 8.6MG TABLET PO SCH (22:08)
[2022-06-14] VITALS: BP 100/65
[2022-06-14] MEDS: HYDROCODONE/ACETAMINOPHEN 10/325MG TABLET PO PRN (02:36)
[2022-06-14 04:00] VITALS: BP 110/63
[2022-06-14] MEDS: GABAPENTIN 100MG CAPSULE PO SCH ×3 (06:00→22:00)
[2022-06-14] MEDS: BACLOFEN 10MG TABLET PO SCH ×3 (06:00→22:00)
[2022-06-14 06:06] LABS: BASOPHILS % 0.4 % (0.0-2.0); EOSINOPHILS % 0.2 % (0.0-5.0); HEMATOCRIT. 33.2 % (42.0-52.0); LYMPHOCYTES % 12.6 % (20.0-50.0); MEAN CORPUSCULAR HEMOGLOBIN 33.9 pg (28.0-32.0); MEAN CORPUSCULAR VOLUME 102.2 fL (80.0-94.0); MEAN PLATELET VOLUME 6.8 fl (7.4-10.4); MONOCYTES % 10.1 % (2.0-8.0); NEUTROPHILS % 76.7 % (40.0-76.0); PLATELET 411 x1000/uL (130-400); RED BLOOD CELL COUNT 3.25 mill/uL (4.7-6.1); RED CELL DISTRIBUTION WIDTH 17.1 % (11.6-14.6)
[2022-06-14 07:17] LABS: CHLORIDE 109 mEq/L (98-107)
[2022-06-14] MEDS: PREDNISONE 20MG TABLET PO SCH (07:50)
[2022-06-14 08:00] VITALS: BP 116/72
[2022-06-14] MEDS: FAMOTIDINE 20MG TABLET PO SCH ×2 (09:00→21:00)
[2022-06-14 12:00] VITALS: BP 121/78
[2022-06-14 13:06] LABS: ALDOLASE 4.2 U/L (3.3-10.3)
[2022-06-14 16:00] VITALS: BP 113/64
[2022-06-14] MEDS ORDERED: ACETAMINOPHEN 160MG/5ML UDC PO PRN (16:00)
[2022-06-14] MEDS ORDERED: ACETAMINOPHEN 650MG/20.3ML UDC PO PRN (16:30)
[2022-06-14 17:06] LABS: ANTI-MYELOPEROXIDASE AB < 0.2 units (0.0-0.9); ANTI-PROTEINASE 3 ABS < 0.2 units (0.0-0.9)
[2022-06-14] MEDS: DEXT 5%/0.45% NACL 1000ML 1,000 ML IV SCH (17:30)
[2022-06-14] MEDS: NYSTATIN 100,000 UNITS/ML 5ML UDC SSW SCH (18:00)
[2022-06-14 20:00] VITALS: BP 104/78
[2022-06-14] MEDS: SENNOSIDES 8.6MG TABLET PO SCH (21:00)
[2022-06-15] VITALS: BP 109/69
[2022-06-15] MEDS: NYSTATIN 100,000 UNITS/ML 5ML UDC SSW SCH ×5 (00:25→18:22)
[2022-06-15] MEDS: DEXT 5%/0.45% NACL 1000ML 1,000 ML IV SCH ×3 (02:15→18:22)
[2022-06-15 04:00] VITALS: BP 125/78
[2022-06-15] MEDS: BACLOFEN 10MG TABLET PO SCH ×3 (06:00→22:00)
[2022-06-15] MEDS: GABAPENTIN 100MG CAPSULE PO SCH ×3 (06:00→22:00)
[2022-06-15] MEDS: PREDNISONE 20MG TABLET PO SCH (07:50)
[2022-06-15 08:00] VITALS: BP 120/76
[2022-06-15] MEDS: FAMOTIDINE 20MG TABLET PO SCH ×2 (09:00→20:27)
[2022-06-15] MEDS ORDERED: MORPHINE SULFATE 2 MG/ML CPJ (NOT FOR IM USE) IV SCH (09:00)
[2022-06-15 12:00] VITALS: BP 108/72
[2022-06-15 13:07] LABS: ATYPICAL P-ANCA <1:20 titer (Neg:<1:20); CYTOPLASMIC C-ANCA <1:20 titer (Neg:<1:20); PERINUCLEAR P-ANCA <1:20 titer (Neg:<1:20)
[2022-06-15 16:00] VITALS: BP 120/74
[2022-06-15 19:09] LABS: ANA IFA Negative (.)
[2022-06-15 20:00] VITALS: BP 115/76
[2022-06-15] MEDS: SENNOSIDES 8.6MG TABLET PO SCH (20:27)
[2022-06-16] VITALS: BP 118/74
[2022-06-16] MEDS: DEXT 5%/0.45% NACL 1000ML 1,000 ML IV SCH ×3 (01:16→17:30)
[2022-06-16 04:00] VITALS: BP 110/81
[2022-06-16] MEDS: NYSTATIN 100,000 UNITS/ML 5ML UDC SSW SCH ×4 (06:00→18:00)
[2022-06-16 07:04] LABS: BASOPHILS % 0.5 % (0.0-2.0); EOSINOPHILS % 0.4 % (0.0-5.0); HEMATOCRIT. 30.2 % (42.0-52.0); HEMOGLOBIN. 10.4 g/dL (14.0-18.0); LYMPHOCYTES % 10.4 % (20.0-50.0); MEAN CORPUSCULAR HEMOGLOBIN 33.5 pg (28.0-32.0); MEAN CORPUSCULAR VOLUME 97.6 fL (80.0-94.0); MEAN PLATELET VOLUME 7.1 fl (7.4-10.4); MONOCYTES % 10.3 % (2.0-8.0); NEUTROPHILS % 78.4 % (40.0-76.0); PLATELET 394 x1000/uL (130-400); RED CELL DISTRIBUTION WIDTH 16.3 % (11.6-14.6)
[2022-06-16] MEDS: PREDNISONE 20MG TABLET PO SCH (07:50)
[2022-06-16 08:00] VITALS: BP 111/72
[2022-06-16 08:35] LABS: CHLORIDE 107 mEq/L (98-107)
[2022-06-16] MEDS ORDERED: MORPHINE SULFATE 2 MG/ML CPJ (NOT FOR IM USE) IV NR (09:45)
[2022-06-16 12:00] VITALS: BP 107/71
[2022-06-16] MEDS ORDERED: DIATR MEGLU/DIATRIZOATE SOLN 30ML ONE (12:00)
[2022-06-16] MEDS ORDERED: LORAZEPAM 2MG/ML CPJ IV PRN (13:45)
[2022-06-16] MEDS: BACLOFEN 10MG TABLET PO SCH (14:00)
[2022-06-16] MEDS: GABAPENTIN 100MG CAPSULE PO SCH (14:00)
[2022-06-16 15:56] VITALS: BP 118/71
[2022-06-16] MEDS ORDERED: POTASSIUM CHLORIDE 20MEQ TABLET SR PO NR (16:00)
[2022-06-17] MEDS: BACLOFEN 10MG TABLET PO SCH ×2 (00:11→08:11)
[2022-06-17] MEDS: GABAPENTIN 100MG CAPSULE PO SCH ×2 (00:12→08:11)
[2022-06-17] MEDS: SENNOSIDES 8.6MG TABLET PO SCH (00:12)
[2022-06-17] MEDS: NYSTATIN 100,000 UNITS/ML 5ML UDC SSW SCH (00:14)
[2022-06-17 00:35] VITALS: BP 99/65
[2022-06-17] MEDS: DEXT 5%/0.45% NACL 1000ML 1,000 ML IV SCH (01:30)
[2022-06-17 07:21] LABS: BASOPHILS % 0.7 % (0.0-2.0); EOSINOPHILS % 0.7 % (0.0-5.0); HEMOGLOBIN. 10.6 g/dL (14.0-18.0); LYMPHOCYTES % 8.3 % (20.0-50.0); MEAN CORPUSCULAR HEMOGLOBIN 34.6 pg (28.0-32.0); MEAN CORPUSCULAR VOLUME 101.6 fL (80.0-94.0); MEAN PLATELET VOLUME 7.1 fl (7.4-10.4); MONOCYTES % 11.6 % (2.0-8.0); NEUTROPHILS % 78.7 % (40.0-76.0); PLATELET 321 x1000/uL (130-400); RED BLOOD CELL COUNT 3.05 mill/uL (4.7-6.1); RED CELL DISTRIBUTION WIDTH 16.1 % (11.6-14.6)
[2022-06-17 07:28] LABS: CHLORIDE 108 mEq/L (98-107)
[2022-06-17 08:00] VITALS: BP 116/72
[2022-06-17] MEDS: PREDNISONE 20MG TABLET PO SCH (08:37)
[2022-06-17 09:32] VITALS: BP 116/72
[2022-06-17] MEDS ORDERED: POTASSIUM CHLORIDE 20MEQ TABLET SR PO NR (11:45)
== END 2022-06-17 09:50 | DRG 720 ==
LOC: ER 11:04 → EDBEDREQ 14:03 → EDBEDREQSVC 14:03 → 7WST 16:09 → EDBEDREQTM 16:26 → EDBEDREQ 16:26 → ENRESERV 16:55 → 6EST 05-20 12:03
PROVIDERS: ADMIT Internal Medicine; ATTEND Internal Medicine
PROC: 05HY33Z Insertion of Infusion Device into Upper Vein, Percutaneous Approach (ICD-10-PCS; principal; 2022-04-30)
PROC: B54MZZA Ultrasonography of Right Upper Extremity Veins, Guidance (ICD-10-PCS; 2022-04-30)
PROC: 30233N1 Transfusion of Nonautologous Red Blood Cells into Peripheral Vein, Percutaneous Approach (ICD-10-PCS; 2022-05-12)
PROC: 0D20XUZ Change Feeding Device in Upper Intestinal Tract, External Approach (ICD-10-PCS; 2022-05-17)
DX: A41.9 Sepsis, unspecified organism (principal); E43 Unspecified severe protein-calorie malnutrition; L89.151 Pressure ulcer of sacral region, stage 1; C10.9 Malignant neoplasm of oropharynx, unspecified; E11.22 Type 2 diabetes mellitus with diabetic chronic kidney disease; G90.8 Other disorders of autonomic nervous system; L03.311 Cellulitis of abdominal wall; D53.9 Nutritional anemia, unspecified; K94.22 Gastrostomy infection; L89.890 Pressure ulcer of other site, unstageable; K94.23 Gastrostomy malfunction; E78.00 Pure hypercholesterolemia, unspecified; H54.8 Legal blindness, as defined in USA; I12.9 Hypertensive chronic kidney disease with stage 1 through stage 4 chronic kidney disease, or unspecified chronic kidney disease; K21.9 Gastro-esophageal reflux disease without esophagitis; R13.10 Dysphagia, unspecified; M19.90 Unspecified osteoarthritis, unspecified site; G40.909 Epilepsy, unspecified, not intractable, without status epilepticus; M60.88 Other myositis, other site; Y83.8 Other surgical procedures as the cause of abnormal reaction of the patient, or of later complication, without mention of misadventure at the time of the procedure; S80.12XA Contusion of left lower leg, initial encounter; X58.XXXA Exposure to other specified factors, initial encounter; Z20.822 Contact with and (suspected) exposure to COVID-19; F32.A Depression, unspecified; Z86.16 Personal history of COVID-19; Z86.73 Personal history of transient ischemic attack (TIA), and cerebral infarction without residual deficits; Z87.891 Personal history of nicotine dependence; Z85.818 Personal history of malignant neoplasm of other sites of lip, oral cavity, and pharynx; Y92.89 Other specified places as the place of occurrence of the external cause; Y93.89 Activity, other specified; Y99.8 Other external cause status; Z78.1 Physical restraint status; Z99.3 Dependence on wheelchair; Z68.1 Body mass index [BMI] 19.9 or less, adult
CPT/HCPCS: 36415; 36573; 36600; 70487; 71045; 71260; 73562; 74018; 74177; 80048; 80053; 80202; 81003; 82085; 82375; 82550; 82595; 82607; 82728; 82746; 82805; 82962; 83036; 83520; 83540; 83550; 83605; 83880; 84145; 84439; 84443; 84481; 84484; 85014; 85018; 85025; 85044; 85651; 86147; 86160; 86225; 86235; 86256; 86301; 86850; 86880; 86900; 86920; 87426; 87804; 92610; 93005; 93923; 93970; 97162; 97166; 99291; A6261; C1725; C1893; C9113; J0696; J1160; J1815; J2185; J2270; J2543; J2920; J3370; J3490; J7030; J7060; J7512; P9016; Q9963; Q9967; A4315